=== PATIENT | male | born 2000 | race Caucasian/White ===

== ENCOUNTER 2022-10-06 06:31 | Inpatient (IN) | payer MEDICAID, OTHER ==
[~2022-10-06] VITALS: Ht 182.9 cm; Wt 102.0 kg
--- NOTE | 2022-10-06 06:42 | ED Dyspnea ---
General Stated Complaint: SOB History of Present Illness Date Seen by Provider: Oct 06, 2022 Time Seen by Provider: 06:42 Initial Comments 22-year-old male brought in by EMS. EMS got called out for shortness of breath. When he arrived, patient was in what appears to be SVT he was given 6 and 12 adenosine with no significant change. He did go from approximately 170s to the 150s. Patient is type I diabetic and reports his blood sugars been running a little high. Patient reports that he has been having some vomiting. Patient reports that whenever he drinks water anything he just vomits it back up. No reports of fevers, chills or any other systemic complaints (DALILA TRIPLETT DO) Allergies and Home Medications Allergies Coded Allergies: No Known Drug Allergies (Unverified , 10/06/22) Patient Home Medication List Home Medication List Reviewed: Yes (DALILA TRIPLETT DO) Review of Systems Review of Systems Constitutional: No chills, No fever; malaise, weakness Respiratory: No cough; short of breath Cardiovascular: chest pain (Pressure) Gastrointestinal: No diarrhea; nausea, vomiting Musculoskeletal: no symptoms reported Skin: no symptoms reported Psychiatric/Neurological: No Symptoms Reported Endocrine: No Symptoms Reported (DALIAL TRIPLETT DO) Physical Exam Vital Signs Vital Signs - First Documented 10/06/22 06:31 Temp 36.6 Pulse 151 Resp 40 B/P (MAP) 180/112 (134) Pulse Ox 100 O2 Delivery Room Air (JANINE PHILLIPS MD) Vital Signs Capillary Refill : (DALILA TRIPLETT DO) Height, Weight, BMI Height: '" Weight: lbs. oz. kg; BMI Method: General Appearance: Mild Distress, Other (Obviously ill, [place] breathing) Respiratory: Lungs Clear; No Respiratory Distress; Other (Tachypneic) Cardiovascular: No Edema, Tachycardia Gastrointestinal: Non Tender, Soft Neurologic/Psychiatric: Alert, Oriented x3 Skin: Rash (Mild erythema diffuse chest) (DALILA TRIPLETT DO) Focused Exam Lactate Level 10/06/22 06:35: Lactic Acid Level 3.06*H (JANINE PHILLIPS MD) Lactic Acid Level Laboratory Tests Test 10/06/22 06:35 Lactic Acid Level 3.06 MMOL/L (0.50-2.00) *H (JANINE PHILLIPS MD) Progress/Results/Core Measures Results/Orders Lab Results Laboratory Tests Test 10/06/22 06:35 10/06/22 07:07 10/06/22 07:09 10/06/22 07:20 Range/Units White Blood Count 25.0 H 4.3-11.0 10^3/uL Red Blood Count 5.89 H 4.30-5.52 10^6/uL Hemoglobin 18.3 H 13.3-17.7 g/dL Hematocrit 51 40-54 % Mean Corpuscular Volume 87 80-99 fL Mean Corpuscular Hemoglobin 31 25-34 pg Mean Corpuscular Hemoglobin Concent 36 32-36 g/dL Red Cell Distribution Width 13.2 10.0-14.5 % Platelet Count 476 H 130-400 10^3/uL Mean Platelet Volume 9.2 9.0-12.2 fL Immature Granulocyte % (Auto) 3 % Neutrophils (%) (Auto) 82 H 42-75 % Lymphocytes (%) (Auto) 10 L 12-44 % Monocytes (%) (Auto) 5 0-12 % Eosinophils (%) (Auto) 0 0-10 % Basophils (%) (Auto) 1 0-10 % Neutrophils # (Auto) 20.5 H 1.8-7.8 10^3/uL Lymphocytes # (Auto) 2.4 1.0-4.0 10^3/uL Monocytes # (Auto) 1.2 H 0.0-1.0 10^3/uL Eosinophils # (Auto) 0.0 0.0-0.3 10^3/uL Basophils # (Auto) 0.2 H 0.0-0.1 10^3/uL Immature Granulocyte # (Auto) 0.7 H 0.0-0.1 10^3/uL Neutrophils % (Manual) 68 % Lymphocytes % (Manual) 11 % Monocytes % (Manual) 3 % Metamyelocytes % 2 % Myelocytes % 1 % Band Neutrophils 13 % Reactive Lymphocytes 2 % Toxic Granulation 3+ Platelet Estimate INCREASED Blood Morphology Comment NORMAL D-Dimer 0.57 H 0.00-0.49 UG/ML Sodium Level 134 L 135-145 MMOL/L Potassium Level 4.8 3.6-5.0 MMOL/L Chloride Level 98 98-107 MMOL/L Carbon Dioxide Level 5 *L 21-32 MMOL/L Anion Gap 31 H 5-14 MMOL/L Blood Urea Nitrogen 11 7-18 MG/DL Creatinine 0.90 0.60-1.30 MG/DL Estimat Glomerular Filtration Rate 125 BUN/Creatinine Ratio 12 Glucose Level 396 H 70-105 MG/DL Lactic Acid Level 3.06 *H 0.50-2.00 MMOL/L Calcium Level 9.1 8.5-10.1 MG/DL Corrected Calcium 8.5-10.1 MG/DL Magnesium Level 1.9 1.6-2.4 MG/DL Total Bilirubin 0.2 0.1-1.0 MG/DL Aspartate Amino Transf (AST/SGOT) 7 5-34 U/L Alanine Aminotransferase (ALT/SGPT) 11 0-55 U/L Alkaline Phosphatase 122 40-136 U/L Troponin I < 0.30 <0.30 NG/ML C-Reactive Protein 0.48 <0.50 MG/DL Total Protein 8.5 H 6.4-8.2 GM/DL Albumin 5.1 H 3.2-4.5 GM/DL Glucometer 318 H 70-110 MG/DL Venous Blood pH < 7.00 L 7.31-7.41 Venous Blood Partial Pressure CO2 27 L 40-52 MMHG Venous Blood HCO3 0 L 22-28 MMOL/L Influenza Type A (RT-PCR) Not Detected Not Detecte Influenza Type B (RT-PCR) Not Detected Not Detecte SARS-CoV-2 RNA (RT-PCR) Not Detected Not Detecte Test 10/06/22 07:30 10/06/22 08:21 Range/Units Urine Color YELLOW Urine Clarity CLEAR Urine pH 5.5 5-9 Urine Specific [place] >=1.030 1.016-1.022 Urine Protein 1+ H NEGATIVE Urine Glucose (UA) 2+ H NEGATIVE Urine Ketones 3+ H NEGATIVE Urine Nitrite NEGATIVE NEGATIVE Urine Bilirubin NEGATIVE NEGATIVE Urine Urobilinogen 0.2 < = 1.0 MG/DL Urine Leukocyte Esterase NEGATIVE NEGATIVE Urine RBC (Auto) TRACE-I H NEGATIVE Urine RBC NONE /HPF Urine WBC NONE /HPF Urine Squamous Epithelial Cells NONE /HPF Urine Crystals NONE /LPF Urine Bacteria NEGATIVE /HPF Urine Casts PRESENT /LPF Urine Granular Casts RARE /LPF Urine Mucus NEGATIVE /LPF Urine Culture Indicated NO Glucometer 370 H 70-110 MG/DL (JANINE PHILLIPS MD) My Orders Orders - JANINE PHILLIPS MD Arterial Blood Gas (10/06/22 07:02) Fibrin Degradation Products (10/06/22 07:02) Influenza A And B By Pcr (10/06/22 07:02) Covid 19 Inhouse Test (10/06/22 07:02) Lactated Ringers (Lr 1000 Ml Iv Solution (10/06/22 07:10) Insulin (Regular) Human (Novolin R (Per (10/06/22 07:45) Ct Angio Chest W (10/06/22 07:49) Iohexol Injection (Omnipaque 350 Mg/Ml 1 (10/06/22 08:00) Received Contrast (Hold Metformin- Contr (10/06/22 08:00) Ns (Ivpb) (Sodium Chloride 0.9% Ivpb Bag (10/06/22 08:00) Venous Blood Gas (10/06/22 08:06) Insulin Regular Drip (Myxredlin 100 Unit (10/06/22 08:30) Lactated Ringers (Lr 1000 Ml Iv Solution (10/06/22 08:25) Accucheck Q1hr Q1HR (10/06/22 08:29) Potassium Cl 10meq/50ml Ivpb (Kcl 10 Meq (10/06/22 08:33) Sodium Bicarbonate 8.4% Syr (Sodium Bica (10/06/22 08:45) Ed Admission (Communication) (10/06/22 08:44) (JANINE PHILLIPS MD) Medications Given in ED Current Medications Medications Dose Ordered Sig/Sunita Route Start Time Stop Time Status Last Admin Dose Admin Calcium Gluconate/ Sodium Chloride 100 ml @ 120 mls/hr ONCE ONCE IV 10/06/22 06:45 10/06/22 07:34 DC 10/06/22 06:52 120 MLS/HR Insulin Human Regular 10 unit ONCE ONCE IV 10/06/22 07:45 10/06/22 07:46 DC 10/06/22 07:42 10 UNIT Sodium Bicarbonate 100 meq ONCE ONCE IV 10/06/22 08:45 10/06/22 08:46 DC 10/06/22 08:55 100 MEQ Sodium Chloride 1,000 ml @ 999 mls/hr ONCE ONCE IV 10/06/22 07:15 10/06/22 08:15 DC 10/06/22 06:47 999 MLS/HR (JANINE PHILLIPS MD) Vital Signs/I&O 10/06/22 06:31 Temp 36.6 Pulse 151 Resp 40 B/P (MAP) 180/112 (134) Pulse Ox 100 O2 Delivery Room Air (JANINE PHILLIPS MD) Progress Progress Note : Progress Note Patient turned over to oncoming physician. Patient appears to be in DKA and DKA resuscitation started with fluids. He did have some peaked T appearing waves on EKG so he was provided with some calcium gluconate. At this time patient's heart rate is starting to slowly improve with fluid resuscitation. (DALILA TRIPLETT DO) Progress Note : Progress Note Received the patient in signout pending lab work. Glucose in the 300s, anion gap 31, bicarb 5, pH less than 7, 3+ ketones in the urine, CBC appears hemoconcentrated with a leukocytosis as well, flu and COVID test negative. All consistent with DKA. I believe the patient is in DKA because he turned his insulin drip off last night. He states he turned it off because he was worried about some low blood sugars that he was having. Patient received 4 L of IV fluids in total after frequent reassessment. 10 units of insulin were given after his potassium came back at 4.8. We will start an insulin drip as well as some potassium with that in the ER. I contacted Dr. Finch who will admit the patient to the intensive care unit under inpatient status. I then contacted the eICU physician and discussed the patient's case. He recommended giving 100 mill equivalents of sodium bicarb via IV as a push dose. The patient will go via EMS transport. Of note, the patient requested I contact his mother, Micaela, and give her an update. Called her at 08:00 at [phone] to give an update. [place] (JANINE PHILLISP MD) Initial ECG Impression Date: Oct 06, 2022 Initial ECG Impression Time: 06:34 Initial ECG Rate: 165 Initial ECG Rhythm: SVT Comment Narrow QRS, normal axis, no significant ST changes or T wave abnormalities other than some slight peaking of T waves (JANINE PHILLIPS MD) Diagnostic Imaging Diagonstic Imaging: Xray (chest), CT (chest) [facility] [place] [place] NAME: [facility] REC#: [id number] PT STATUS: REG ER : 2000 PHYSICIAN: DALILA TRIPLETT DO ADMIT DATE: 10/06/22/ER FS Draft Date of Exam:10/06/22 CHEST 1 VIEW AP/PA ONLY Clinical Indication: Patient brought in by EMS for shortness of air. EXAM: Portable chest x-ray upright view. COMPARISON: None. FINDINGS: Of note, part of the left costophrenic angle region is not completely imaged on this exam. Lungs/pleura: Lungs are clear. There is no pneumothorax. There is no pleural effusion. Mediastinum: Unremarkable. Pulmonary vasculature: Unremarkable. Heart: Unremarkable. Bones/extrathoracic soft tissue: Unremarkable. IMPRESSION: There is no radiographic evidence of acute cardiopulmonary process, as visualized. Dictated on workstation # [id number] Dict: 10/06/22 0700 Trans: 10/06/22 0707 [facility] [id number] Interpreted by: CARLINE FERREIRA MD Electronically signed by: [facility] [place] [place] NAME: DAVID GARCIA [facility] REC#: [id number] PT STATUS: REG ER : 2000 PHYSICIAN: JANINE PHILLIPS MD ADMIT DATE: 10/06/22/ER FS Draft Date of Exam:10/06/22 CT ANGIO CHEST W PROCEDURE: CT angiography of the chest with contrast. TECHNIQUE: Multiple contiguous axial images were obtained through the chest after uneventful bolus administration of intravenous contrast. 3D reconstructed CTA MIP acquisitions were also performed. Auto Exposure Controls were utilized during the CT exam to meet ALARA standards for radiation dose reduction. INDICATION: Chest pain. Shortness of breath. Positive D-dimer. COMPARISON: Chest radiograph 10/06/2022. FINDINGS: Examination is markedly limited by both contrast timing and respiratory motion. Although a saddle embolus is not present, filling defect in the main pulmonary arteries or more distally cannot be entirely excluded. Normal heart size. No pericardial effusion. No mediastinal, hilar or axillary lymphadenopathy. Lungs are clear. No pleural effusion or pneumothorax. No acute osseous findings. Visualized upper abdominal contents are unremarkable. IMPRESSION: 1. Limited exam due to contrast timing and respiratory motion. No saddle embolus is present. However, a filling defect in the main pulmonary arteries or more distally cannot be excluded by this exam. If this remains of clinical concern, the exam can be repeated if the patient has normal renal function. 2. No acute CT findings in the chest. Dictated on workstation # [id number] Dict: 10/06/2225 Trans: 10/06/22 0841 [id number] Interpreted by: MAYA BAGLEY MD Electronically signed by: (JANINE PHILLIPS MD) Critical Care Note Critical Care Start Time: 07:00 Stop Time: 09:05 Total Time (minutes) 93 Progress The patient was extremely tachycardic and Kussma[place] breathing. He has significant metabolic derangements including a pH less than 7. He is at significant risk for cardiovascular collapse. I frequently was in the room reassessing the patient, reviewing his labs, changing medications, contacting other physicians for report, and giving updates to family. (JANINE PHILLIPS MD) Departure Impression Primary Impression: DKA (diabetic ketoacidosis) Qualified Codes: E10.10 - Type 1 diabetes mellitus with ketoacidosis without coma Disposition: 30 STILL A PATIENT Condition: Critical Admissions Decision to Admit Reason: Admit from ER (General) Decision to Admit/Date: Oct 06, 2022 Time/Decision to Admit Time: 08:30 (JANINE PHILLIPS MD) Transfer Method of Transfer: EMS (JANINE PHILLIPS MD) DALILA TRIPLETT DO Oct 06, 2022 06:42 JANINE PHILLIPS MD Oct 06, 2022 07:33
[2022-10-06] MEDS ORDERED: CALC GLUC 1 GM/100 ML IVPB 100 ML IV ONE (06:45)
[2022-10-06 06:57] LABS: BASOPHILS # (AUTO) 0.2 10^3/uL (0.0-0.1); BASOPHILS % (AUTO) 1 % (0-10); EOSINOPHILS % (AUTO) 0 % (0-10); HEMATOCRIT 51 % (40-54); HEMOGLOBIN 18.3 g/dL (13.3-17.7); LYMPHOCYTES # (AUTO) 2.4 10^3/uL (1.0-4.0); LYMPHOCYTES % (AUTO) 10 % (12-44); MEAN CORPUSCULAR HEMOGLOBIN 31 pg (25-34); MEAN CORPUSCULAR HGB CONC 36 g/dL (32-36); MEAN CORPUSCULAR VOLUME 87 fL (80-99); MEAN PLATELET VOLUME 9.2 fL (9.0-12.2); MONOCYTES # (AUTO) 1.2 10^3/uL (0.0-1.0); MONOCYTES % (AUTO) 5 % (0-12); NEUTROPHILS # (AUTO) 20.5 10^3/uL (1.8-7.8); NEUTROPHILS % (AUTO) 82 % (42-75); PLATELET COUNT 476 10^3/uL (130-400)
--- NOTE | 2022-10-06 07:08 | Diagnostic Imaging Report ---
Clinical Indication: Patient brought in by EMS for shortness of air. EXAM: Portable chest x-ray upright view. COMPARISON: None. FINDINGS: Of note, part of the left costophrenic angle region is not completely imaged on this exam. Lungs/pleura: Lungs are clear. There is no pneumothorax. There is no pleural effusion. Mediastinum: Unremarkable. Pulmonary vasculature: Unremarkable. Heart: Unremarkable. Bones/extrathoracic soft tissue: Unremarkable. IMPRESSION: There is no radiographic evidence of acute cardiopulmonary process, as visualized. Dictated by: Dictated on workstation # [id number]
[2022-10-06] MEDS ORDERED: LACTATED RINGERS 1,000 ML IV STA ×2 (07:10→08:25)
[2022-10-06] MEDS ORDERED: NS IV 1000 ML 1,000 ML IV ONE (07:15)
[2022-10-06 07:18] LABS: BAND NEUTROPHILS 13 %; LYMPHOCYTES % (MANUAL) 11 %; METAMYELOCYTES % 2 %; MONOCYTES % (MANUAL) 3 %; MYELOCYTES % 1 %; NEUTROPHILS % (MANUAL) 68 %; PLATELET ESTIMATE INCREASED; RBC MORPH NORMAL; REACTIVE LYMPHOCYTES 2 %; TOXIC GRANULATION/VACUOLAZATIO 3+
[2022-10-06 07:28] LABS: CHLORIDE 98 MMOL/L (98-107); POTASSIUM 4.8 MMOL/L (3.6-5.0); SODIUM 134 MMOL/L (135-145)
[2022-10-06 07:30] LABS: ALANINE AMINOTRANSFERASE 11 U/L (0-55); ALKALINE PHOSPHATASE 122 U/L (40-136); BILIRUBIN,TOTAL 0.2 MG/DL (0.1-1.0); BUN/CREATININE RATIO 12; CALCIUM 9.1 MG/DL (8.5-10.1); CARBON DIOXIDE 5 MMOL/L (21-32); GFR ESTIMATED 125; GLUCOSE 396 MG/DL (70-105); MAGNESIUM 1.9 MG/DL (1.6-2.4)
[2022-10-06 07:31] LABS: ALBUMIN 5.1 GM/DL (3.2-4.5); TOTAL PROTEIN 8.5 GM/DL (6.4-8.2)
[2022-10-06 07:44] LABS: BILIRUBIN,URINE NEGATIVE (NEGATIVE); CLARITY,URINE CLEAR; COLOR,URINE YELLOW; GLUCOSE, URINE (UA) 2+ (NEGATIVE); KETONES,URINE 3+ (NEGATIVE); LEUKOCYTE ESTERASE ,URINE NEGATIVE (NEGATIVE); NITRITE,URINE NEGATIVE (NEGATIVE); PH,URINE 5.5 (5-9); PROTEIN,URINE 1+ (NEGATIVE)
[2022-10-06] MEDS ORDERED: inSUlin (REGULAR) HUMAN 1 UNIT/0.01 ML (CHARGE PER UNIT) IV ONE (07:45)
[2022-10-06 07:50] LABS: BACTERIA,URINE NEGATIVE /HPF
[2022-10-06 07:51] LABS: GRANULAR CASTS,URINE RARE /LPF
[2022-10-06] MEDS ORDERED: NS 100 ML (IVPB) BAG IV ONE (08:00)
[2022-10-06] MEDS ORDERED: IOHEXOL 350 MG/ML 100 ML (OMNIPAQUE 350) VIAL IV ONE (08:00)
[2022-10-06] MEDS ORDERED: HOLD METFORMIN - RECEIVED CONTRAST 20 ML VIAL IV SCH (08:00)
[2022-10-06] MEDS ORDERED: POTASSIUM CL 10MEQ/50ML IVPB 50 ML IV STA (08:33)
--- NOTE | 2022-10-06 08:42 | Diagnostic Imaging Report ---
PROCEDURE: CT angiography of the chest with contrast. TECHNIQUE: Multiple contiguous axial images were obtained through the chest after uneventful bolus administration of intravenous contrast. 3D reconstructed CTA MIP acquisitions were also performed. Auto Exposure Controls were utilized during the CT exam to meet ALARA standards for radiation dose reduction. INDICATION: Chest pain. Shortness of breath. Positive D-dimer. COMPARISON: Chest radiograph 10/06/2022. FINDINGS: Examination is markedly limited by both contrast timing and respiratory motion. Although a saddle embolus is not present, filling defect in the main pulmonary arteries or more distally cannot be entirely excluded. Normal heart size. No pericardial effusion. No mediastinal, hilar or axillary lymphadenopathy. Lungs are clear. No pleural effusion or pneumothorax. No acute osseous findings. Visualized upper abdominal contents are unremarkable. IMPRESSION: 1. Limited exam due to contrast timing and respiratory motion. No saddle embolus is present. However, a filling defect in the main pulmonary arteries or more distally cannot be excluded by this exam. If this remains of clinical concern, the exam can be repeated if the patient has normal renal function. 2. No acute CT findings in the chest. Dictated by: Dictated on workstation # [id number]
[2022-10-06] MEDS ORDERED: SODIUM BICARB 8.4% 50 MEQ/50 ML (ABBOTT) SYR IV ONE (08:45)
[2022-10-06 09:42] VITALS: BP 150/92
[2022-10-06] MEDS ORDERED: POTASSIUM CL 10MEQ/50ML IVPB 50 ML IV ONE (10:39)
[2022-10-06] MEDS ORDERED: D5 1/2 NS 1000 ML IV SOLUTION 1,000 ML IV ONE (10:39)
[2022-10-06] MEDS ORDERED: 1/2 NS IV SOLUTION 1,000 ML IV ONE (10:42)
--- NOTE | 2022-10-06 11:24 | Tele-ICU Progress Note ---
Subjective Date Seen by a Provider: Oct 06, 2022 Time Seen by a Provider: 11:24 Subjective/Events-last exam (Tele-ICU Physician , consultation) Available chart/ vitals / labs / Images reviewed H&P is from ER notes Patient's information available about PMH, allergy reviewed in EMR. ROS as per chart and RN report Video assessment done using teleICU camera, rest of exam as per RN Discussed with RN. He is a 22-year-old male with past medical history of for type 1 diabetes mellitus on insulin presented to the [facility] emergency room with a complaint of shortness of breath and chest pain. He came via ambulance and EMS found him to have a SVT in the range of 430-170/min they have given adenosine 6 mg followed by 12 mg without improvement. He is also having vomiting said he could not keep anything down a day prior to the admission. He denies any hemoptysis hematemesis. No abdominal pain. No urinary symptoms present. In the emergency room he is found to have a markedly elevated blood sugars with diabetic ketoacidosis. Metabolic acidosis. He is given a Zofran and IV fluids along with insulin drip and transferred to. [facility] in [place]. He is admitted to ICU for further evaluation and management. I have evaluated him via video visit in the intensive care unit at that time he is feeling somewhat better he is tachypneic. He was markedly tachypneic and having Kussmaul breathing at [facility] for ER physician hence I advised that he him to give 100 mEq of sodium bicarbonate. He has a leukocytosis but there is no source of infection present. In view of the chest pain for which she was evaluated with CT angiogram of the chest which is within normal limits. No pulmonary emboli found. Impression 1. Diabetic ketoacidosis. 2. Severe dehydration 3. Severe tachycardia probably due to dehydration and acidosis Recommendations 1. Will hydrate patient with D5 half-normal saline per protocol 2. IV insulin drip per protocol 3. We will continue to monitor his electrolytes, magnesium and phosphorus every 4 hours for the next 1 day 4. IV Zofran for nausea and IV Protonix for any gastritis. 5. Further management for primary care physician. CC time 25 minutes Sepsis Event Evaluation Height, Weight, BMI Height: '" Weight: lbs. oz. kg; 29.59 BMI Method: Focused Exam Lactate Level 10/06/22 06:35: Lactic Acid Level 3.06*H 10/06/22 09:33: Lactic Acid Level 2.61*H Lactic Acid Level Laboratory Tests Test 10/06/22 09:33 Lactic Acid Level 2.61 MMOL/L (0.50-2.00) *H Exam Exam Patient acknowledged, consented, and participated in this virtual visit which was conducted using real time audio/video Vital Signs Date Time Temp Pulse Resp B/P (MAP) Pulse Ox O2 Delivery O2 Flow Rate FiO2 10/06/22 11:00 141 33 137/93 (108) 100 Room Air 10/06/22 10:45 152 33 149/93 (111) 97 Room Air 10/06/22 10:44 156 10/06/22 10:40 37.6 151 39 152/100 (117) 100 Room Air 10/06/22 10:30 156 33 152/100 (117) 100 Room Air 10/06/22 06:31 36.6 151 40 180/112 (134) 100 Room Air I & O 10/06/22 07:00 Intake Total 200 ml Balance 200 ml Height & Weight Height: '" Weight: lbs. oz. kg; 29.59 BMI Method: General Appearance: Mild Distress, Other (Obviously ill, [place] breathing) Respiratory: Lungs Clear; No Respiratory Distress; Other (Tachypneic) Cardiovascular: No Edema, Tachycardia Capillary Refill: Less Than 3 Seconds Neurologic/Psychiatric: Alert, Oriented x3 Skin: Rash (Mild erythema diffuse chest) Results Lab Laboratory Tests 10/06/22 06:35 Assessment/Plan Assessment/Plan as above Critical Care: Critically Ill Patient Time spent with patient (mins): 25 JOSH MUÑOZ MD Oct 06, 2022 11:24
[2022-10-06] MEDS ORDERED: ONDANSETRON 4 MG/2 ML (SDV) Z0FRAN IVP PRN (11:30)
[2022-10-06] MEDS ORDERED: INSU100I42 (11:49)
[2022-10-06] MEDS ORDERED: NS IV 1000 ML 1,000 ML IV SCH (12:00)
[2022-10-06 12:17] LABS: HEMATOCRIT 52 % (40-54); HEMOGLOBIN 18.1 g/dL (13.3-17.7); MEAN CORPUSCULAR HEMOGLOBIN 31 pg (25-34); MEAN CORPUSCULAR HGB CONC 35 g/dL (32-36); MEAN CORPUSCULAR VOLUME 89 fL (80-99); MEAN PLATELET VOLUME 8.9 fL (9.0-12.2); PLATELET COUNT 368 10^3/uL (130-400); WHITE BLOOD COUNT 26.5 10^3/uL (4.3-11.0)
[2022-10-06] MEDS: POTASSIUM CL 10MEQ/50ML IVPB 50 ML IV SCH ×7 (12:34→21:57)
[2022-10-06] MEDS: 1/2 NS IV SOLUTION 1,000 ML IV SCH ×2 (12:34→16:24)
[2022-10-06 12:44] LABS: CALCIUM 9.3 MG/DL (8.5-10.1); CREATININE SERUM 1.23 MG/DL (0.60-1.30); PHOSPHORUS 2.6 MG/DL (2.3-4.7); POTASSIUM 4.1 MMOL/L (3.6-5.0)
[2022-10-06 14:27] LABS: CALCIUM 9.3 MG/DL (8.5-10.1); CREATININE SERUM 1.25 MG/DL (0.60-1.30); POTASSIUM 4.2 MMOL/L (3.6-5.0)
[2022-10-06] MEDS: D5 1/2 NS 1000 ML IV SOLUTION 1,000 ML IV SCH ×3 (15:17→23:38)
[2022-10-06 16:24] LABS: CALCIUM 9.1 MG/DL (8.5-10.1); CREATININE SERUM 1.14 MG/DL (0.60-1.30); MAGNESIUM 1.8 MG/DL (1.6-2.4); PHOSPHORUS 1.2 MG/DL (2.3-4.7); POTASSIUM 3.8 MMOL/L (3.6-5.0)
[2022-10-06] MEDS ORDERED: POTASSIUM PHOSPHATE INJ 30 MM in NS (IVPB) 250 ML IV ONE (17:00)
[2022-10-06 20:34] LABS: POTASSIUM 3.7 MMOL/L (3.6-5.0)
[2022-10-06 20:36] LABS: CALCIUM 8.8 MG/DL (8.5-10.1)
[2022-10-06 20:40] LABS: CREATININE SERUM 1.02 MG/DL (0.60-1.30); PHOSPHORUS 1.9 MG/DL (2.3-4.7)
[2022-10-06 20:42] LABS: MAGNESIUM 1.6 MG/DL (1.6-2.4)
--- NOTE | 2022-10-06 22:26 | History & Physical-Hospitalist ---
History of Present Illness HPI/Chief Complaint Handy Crouch is a 22 year old male with T1DM who presented with shortness of breath. He has also had nausea and vomiting. He has been unable to hold anything down. He says he had issues with his blood sugars going low and turned off his insulin pump. He says he forgot to turn it back on. He has a continuous glucose monitor but says he hasn't been wearing it. He has been doing fingersticks. He says he was in his normal state of health prior to turning off his insulin pump. He denies fevers and chills. He denies shortness of breath and cough. He denies chest pain. Source: patient Exam Limitations: clinical condition Date Seen 10/06/22 Time Seen by a Provider: 11:50 Attending Physician Nyla,Local Physician PCP Admitting Physician: Juhi Schafer MD Attending Physician: Juhi Schafer MD Referring Physician Date of Admission Oct 06, 2022 at 10:30 Home Medications & Allergies Home Medications Reviewed patient Home Medication Reconciliation performed by pharmacy medication reconciliations urgent care technician and/or nursing. Patients Allergies have been reviewed. Allergies Allergies Coded Allergies No Known Drug Allergies (Xcysdgrdrl12/19/22) Past Rwzxkmq-Tvjcoz-Xqmbrf Hx Patient Social History Tobacco Use?: No Substance use?: No Alcohol Use?: No Pt feels they are or have been: No Current Status Advance Directives: No Communicates: Verbally Primary Language: Korean Preferred Spoken Language: Korean Is interpretation needed?: No Implanted or Applied Medical D: None Past Medical History Diabetes, Insulin dep Family Medical History No Pertinent Family Hx Review of Systems Constitutional: malaise, weakness Respiratory: short of breath Cardiovascular: no symptoms reported Gastrointestinal: nausea, vomiting Physical Exam Physical Exam Vital Signs Vital Signs - First Documented 10/06/22 06:31 Temp 36.6 Pulse 151 Resp 40 B/P (MAP) 180/112 (134) Pulse Ox 100 O2 Delivery Room Air Capillary Refill : Less Than 3 Seconds Height, Weight, BMI Height: '" Weight: lbs. oz. kg; 29.59 BMI Method: General Appearance: Anxious, Severe Distress (tachypnea) HEENT: PERRL/EOMI, Pharynx Normal Neck: Normal Inspection, Supple Respiratory: Lungs Clear, Respiratory Distress (tachypnea, Kussmaul breathing) Cardiovascular: No Edema, No Murmur, Tachycardia Gastrointestinal: Normal Bowel Sounds, Non Tender, Soft Extremity: Normal Inspection, Non Tender, No Pedal Edema Neurologic/Psychiatric: Alert, No Motor/Sensory Deficits Skin: Normal Color, Warm/Dry Results Results/Procedures Labs Laboratory Tests 10/06/22 06:35 10/06/22 12:05 10/06/22 13:50 10/06/22 15:50 10/06/22 20:10 Patient resulted labs reviewed. Imaging: Reviewed Imaging Report Assessment/Plan Admission Diagnosis T1DM with DKA Admission Status: Inpatient Order (span 2 midnights) Reason for Inpatient Admission: DKA Assessment and Plan T1DM with DKA Blood sugar 396 Betahydroxybutyrate ~10 Bicarb 5 DKA protocol ordered Insulin gtt IV fluids IV Bicarb TeleICU consulted Diabetes education Critical Care Critically Ill Patient Diagnosis/Problems Diagnosis/Problems (1) T1DM (type 1 diabetes mellitus) Status: Acute Qualifiers: Diabetes mellitus complication status: with ketoacidosis Diabetes mellitus complication detail: without coma Qualified Codes: E10.10 - Type 1 diabetes mellitus with ketoacidosis without coma (2) Lactic acidosis Status: Acute (3) SALVADOR (acute kidney injury) Status: Acute (4) High anion gap metabolic acidosis Status: Acute JUHI SCHAFER MD Oct 06, 2022 22:26
[2022-10-06 23:36] LABS: POTASSIUM 3.3 MMOL/L (3.6-5.0)
[2022-10-06 23:37] LABS: CALCIUM 8.9 MG/DL (8.5-10.1)
[2022-10-06 23:41] LABS: CREATININE SERUM 0.9 MG/DL (0.60-1.30); PHOSPHORUS 2.3 MG/DL (2.3-4.7)
[2022-10-06 23:43] LABS: MAGNESIUM 1.6 MG/DL (1.6-2.4)
[2022-10-07] MEDS: POTASSIUM CL 10MEQ/50ML IVPB 50 ML IV SCH ×15 (01:54→23:13)
[2022-10-07 03:25] LABS: BASOPHILS % (AUTO) 0 % (0-10); EOSINOPHILS % (AUTO) 0 % (0-10); HEMATOCRIT 41 % (40-54); HEMOGLOBIN 15.1 g/dL (13.3-17.7); LYMPHOCYTES # (AUTO) 1.7 10^3/uL (1.0-4.0); LYMPHOCYTES % (AUTO) 15 % (12-44); MEAN CORPUSCULAR HEMOGLOBIN 31 pg (25-34); MEAN CORPUSCULAR HGB CONC 37 g/dL (32-36); MEAN CORPUSCULAR VOLUME 85 fL (80-99); MEAN PLATELET VOLUME 8.6 fL (9.0-12.2); MONOCYTES # (AUTO) 1.5 10^3/uL (0.0-1.0); MONOCYTES % (AUTO) 12 % (0-12); NEUTROPHILS # (AUTO) 8.4 10^3/uL (1.8-7.8); NEUTROPHILS % (AUTO) 72 % (42-75); PLATELET COUNT 264 10^3/uL (130-400); WHITE BLOOD COUNT 11.8 10^3/uL (4.3-11.0)
[2022-10-07 03:44] LABS: POTASSIUM 3.3 MMOL/L (3.6-5.0)
[2022-10-07] MEDS: D5 1/2 NS 1000 ML IV SOLUTION 1,000 ML IV SCH ×5 (03:44→19:53)
[2022-10-07 03:45] LABS: CALCIUM 8.9 MG/DL (8.5-10.1)
[2022-10-07 03:49] LABS: CREATININE SERUM 0.83 MG/DL (0.60-1.30); PHOSPHORUS 2.4 MG/DL (2.3-4.7)
[2022-10-07 03:52] LABS: MAGNESIUM 1.6 MG/DL (1.6-2.4)
[2022-10-07 07:56] LABS: BAND NEUTROPHILS 5 %; BASOPHILS % (MANUAL) 0 %; EOSINOPHILS % (MANUAL) 0 %; LYMPHOCYTES % (MANUAL) 20 %; MONOCYTES % (MANUAL) 8 %; NEUTROPHILS % (MANUAL) 67 %; RBC MORPH NORMAL
[2022-10-07] MEDS: 1/2 NS IV SOLUTION 1,000 ML IV SCH ×5 (07:56→23:12)
[2022-10-07 08:48] LABS: POTASSIUM 3.2 MMOL/L (3.6-5.0)
[2022-10-07 08:53] LABS: PHOSPHORUS 1.9 MG/DL (2.3-4.7)
[2022-10-07 08:54] LABS: CREATININE SERUM 0.78 MG/DL (0.60-1.30)
[2022-10-07 08:56] LABS: MAGNESIUM 1.6 MG/DL (1.6-2.4)
--- NOTE | 2022-10-07 10:11 | Tele-ICU Progress Note ---
Subjective Date Seen by a Provider: Oct 07, 2022 Time Seen by a Provider: 10:11 Subjective/Events-last exam (Tele-ICU Physician , Progress Note ) Service provided via interactive audio and video telecommunications E-CARE system to a patient admitted to ICU bed in [facility]. Available chart/ vitals / labs / Images reviewed Video assessment done using teleICU camera, rest of exam as per RN Discussed with RN Events overnight : Afebrile hemodynamically stable Respiratory - I/O = Drips: Pressors- no Consultants: Hospital course: Patient is seen today due to persistent and new A/P DKA -precipitated by pump malfunction ? -No suspicious for new infection, UA and CTA reviewed *Insulin drip, continue to monitor for resolution of acidosis, AG and electrolytes. Continue hydration. SALVADOR- mild - dehydration, hypotension - cont IVF - follow closely Severe tachycardia probably due to dehydration and acidosis - CTA done , no large PE Lines : , (Central Line Necessity Reviewed) Lorenzana: OG: Nutrition: Analgesia: Anxiety/ delirium VTE Prophylaxis: david Stress Ulcer Prophylaxis: na Plans in collaboration with bedside consultants and IM MDs. Discussed with RN to reach out if any questions or concerns A total of 20 minutes of critical care time was devoted to this patient today, required to treat and/or prevent further deterioration of critical care condi tion ( as above ) . I am remotely monitoring this patient from another state. I am unable to do the bedside exam, and history/physical and pertinent information is taken from other notes in the computer and bedside staff. + Sepsis Event Evaluation Height, Weight, BMI Height: '" Weight: lbs. oz. kg; 29.59 BMI Method: Focused Exam Lactate Level 10/06/22 12:05: Lactic Acid Level 2.97*H 10/06/22 13:50: Lactic Acid Level 2.21*H 10/06/22 15:50: Lactic Acid Level 1.10 Exam Exam Patient acknowledged, consented, and participated in this virtual visit which was conducted using real time audio/video Vital Signs Date Time Temp Pulse Resp B/P (MAP) Pulse Ox O2 Delivery O2 Flow Rate FiO2 10/07/22 08:00 106 18 134/111 (119) 100 Room Air 10/07/22 07:41 36.9 10/07/22 07:13 90 10/07/22 07:00 93 21 141/93 (109) 98 Room Air 10/07/22 06:00 98 16 128/82 (97) 100 Room Air 10/07/22 05:00 98 18 127/87 (100) 100 Room Air 10/07/22 04:00 100 Room Air 10/07/22 04:00 98 20 122/78 (93) 98 Room Air 10/07/22 03:45 37.1 93 18 121/78 (92) 99 Room Air 10/07/22 02:00 105 20 124/74 (91) 97 Room Air 10/07/22 01:00 105 10/07/22 01:00 105 17 120/79 (93) 96 Room Air 10/07/22 00:01 37.1 113 20 123/77 (92) 97 Room Air 10/07/22 00:00 97 Room Air 10/06/22 23:00 107 18 121/77 (92) 97 Room Air 10/06/22 22:00 113 20 118/74 (89) 99 Room Air 10/06/22 21:00 113 19 116/67 (83) 97 Room Air 10/06/22 20:00 112 22 114/62 (79) 97 Room Air 10/06/22 20:00 100 Room Air 10/06/22 20:00 37.5 10/06/22 19:00 111 10/06/22 19:00 111 19 116/73 (87) 98 Room Air 10/06/22 18:00 112 20 112/72 (85) 98 Room Air 10/06/22 17:00 109 21 106/63 (77) 97 Room Air 10/06/22 16:00 37.5 10/06/22 16:00 112 22 112/69 (83) 98 Room Air 10/06/22 16:00 100 Room Air 10/06/22 15:00 111 27 104/61 (75) 99 Room Air 10/06/22 14:00 161 24 141/101 (114) 100 Room Air 10/06/22 13:00 133 24 136/87 (103) 100 Room Air 10/06/22 12:57 131 10/06/22 12:37 100 Room Air 10/06/22 12:00 141 43 132/99 (110) 100 Room Air 10/06/22 12:00 37.9 10/06/22 11:00 141 33 137/93 (108) 100 Room Air 10/06/22 10:45 152 33 149/93 (111) 97 Room Air 10/06/22 10:45 100 Room Air 10/06/22 10:44 156 10/06/22 10:40 37.6 151 39 152/100 (117) 100 Room Air 10/06/22 10:30 156 33 152/100 (117) 100 Room Air I & O 10/07/22 07:00 Intake Total 6960 ml Output Total 3875 ml Balance 3085 ml Height & Weight Height: '" Weight: lbs. oz. kg; 29.59 BMI Method: General Appearance: Anxious, Severe Distress (tachypnea) HEENT: PERRL/EOMI, Pharynx Normal Neck: Normal Inspection, Supple Respiratory: Lungs Clear, Respiratory Distress (tachypnea, Kussmaul breathing) Cardiovascular: No Edema, No Murmur, Tachycardia Capillary Refill: Less Than 3 Seconds Extremity: Normal Inspection, Non Tender, No Pedal Edema Neurologic/Psychiatric: Alert, No Motor/Sensory Deficits Skin: Normal Color, Warm/Dry Results Lab Laboratory Tests 10/06/22 06:35 10/06/22 12:05 10/06/22 13:50 10/06/22 15:50 10/06/22 20:10 10/06/22 23:10 10/07/22 03:17 10/07/22 08:20 Assessment/Plan Assessment/Plan 1 AXEL SWAIN MD Oct 07, 2022 10:11
[2022-10-07] MEDS: ENOXAPARIN 40 MG/0.4 ML (LOVENOX) SYR SC SCH (10:35)
[2022-10-07 14:30] LABS: CALCIUM 8.7 MG/DL (8.5-10.1); CREATININE SERUM 0.76 MG/DL (0.60-1.30); POTASSIUM 2.9 MMOL/L (3.6-5.0)
[2022-10-07] MEDS ORDERED: SODIUM PHOSPHATE INJ 15 MM in D5W 100 ML IVPB 100 ML IV ONE (15:00)
[2022-10-07] MEDS ORDERED: KCL 20 MEQ TAB (K-DUR) PO ONE (15:00)
[2022-10-07] MEDS: MAGNESIUM 1 GM/100 ML IVPB 100 ML IV SCH ×3 (17:02→18:54)
--- NOTE | 2022-10-07 17:53 | Progress Note - Hospitalist ---
Subjective HPI/CC On Admission Date Seen by Provider: Oct 07, 2022 Time Seen by Provider: 08:55 Handy Crouch is a 22 year old male with T1DM who presented with shortness of breath. He has also had nausea and vomiting. He has been unable to hold anything down. He says he had issues with his blood sugars going low and turned off his insulin pump. He says he forgot to turn it back on. He has a continuous glucose monitor but says he hasn't been wearing it. He has been doing fingersticks. He says he was in his normal state of health prior to turning off his insulin pump. He denies fevers and chills. He denies shortness of breath and cough. He denies chest pain. Subjective/Events-last exam He is feeling much better today. He is not short of breath. He denies pain. His fiancee is bringing his insulin pump. Focused Exam Lactate Level 10/06/22 12:05: Lactic Acid Level 2.97*H 10/06/22 13:50: Lactic Acid Level 2.21*H 10/06/22 15:50: Lactic Acid Level 1.10 Objective Exam Vital Signs Vital Signs Date Time Temp Pulse Resp B/P (MAP) Pulse Ox O2 Delivery O2 Flow Rate FiO2 10/07/22 16:00 37.7 10/07/22 16:00 116 25 144/98 (113) 99 Room Air Capillary Refill : Less Than 3 Seconds General Appearance: No Apparent Distress, WD/WN Respiratory: Lungs Clear, No Respiratory Distress Cardiovascular: No Murmur, Tachycardia Gastrointestinal: Normal Bowel Sounds, Soft Extremity: Normal Inspection, No Pedal Edema Neurologic/Psychiatric: Alert, Normal Mood/Affect Skin: Normal Color, Warm/Dry Results/Procedures Lab Laboratory Tests 10/06/22 20:10 10/06/22 23:10 10/07/22 03:17 10/07/22 08:20 10/07/22 14:09 Patient resulted labs reviewed. Imaging: Reviewed Imaging Report Assessment/Plan Assessment and Plan Assess & Plan/Chief Complaint T1DM with DKA Hypokalemia Hypophosphatemia High anion gap metabolic acidosis Lactic acidosis SALVADOR Anion gap closed Remains acidotic with elevated beta hydroxybutyrate Continue Insulin gtt IV fluids TeleICU following Diabetes education Critical Care Critically Ill Patient Diagnosis/Problems Diagnosis/Problems (1) T1DM (type 1 diabetes mellitus) Status: Acute Qualifiers: Diabetes mellitus complication status: with ketoacidosis Diabetes mellitus complication detail: without coma Qualified Codes: E10.10 - Type 1 diabetes mellitus with ketoacidosis without coma (2) Lactic acidosis Status: Resolved Resolution Date/Time: 10/07/22 @ 17:52 (3) SALVADOR (acute kidney injury) Status: Resolved Resolution Date/Time: 10/07/22 @ 17:52 (4) High anion gap metabolic acidosis Status: Resolved Resolution Date/Time: 10/07/22 @ 17:52 (5) Hypophosphatemia Status: Acute (6) Hypokalemia Status: Acute JUHI SCHAFER MD Oct 07, 2022 17:52
[2022-10-07 22:43] LABS: POTASSIUM 3.1 MMOL/L (3.6-5.0)
[2022-10-07 22:44] LABS: CALCIUM 8.5 MG/DL (8.5-10.1)
[2022-10-07 22:48] LABS: CREATININE SERUM 0.69 MG/DL (0.60-1.30)
[2022-10-08] MEDS: POTASSIUM CL 10MEQ/50ML IVPB 50 ML IV SCH ×8 (00:55→09:10)
[2022-10-08] MEDS: 1/2 NS IV SOLUTION 1,000 ML IV SCH ×3 (02:13→10:35)
[2022-10-08] MEDS: D5 1/2 NS 1000 ML IV SOLUTION 1,000 ML IV SCH ×2 (03:54→08:02)
[2022-10-08 04:57] LABS: BASOPHILS % (AUTO) 0 % (0-10); EOSINOPHILS # (AUTO) 0.1 10^3/uL (0.0-0.3); EOSINOPHILS % (AUTO) 2 % (0-10); HEMATOCRIT 41 % (40-54); HEMOGLOBIN 15.3 g/dL (13.3-17.7); LYMPHOCYTES # (AUTO) 1.4 10^3/uL (1.0-4.0); LYMPHOCYTES % (AUTO) 16 % (12-44); MEAN CORPUSCULAR HEMOGLOBIN 31 pg (25-34); MEAN CORPUSCULAR HGB CONC 37 g/dL (32-36); MEAN CORPUSCULAR VOLUME 84 fL (80-99); MEAN PLATELET VOLUME 8.9 fL (9.0-12.2); MONOCYTES # (AUTO) 1.1 10^3/uL (0.0-1.0); MONOCYTES % (AUTO) 12 % (0-12); NEUTROPHILS # (AUTO) 6.1 10^3/uL (1.8-7.8); NEUTROPHILS % (AUTO) 70 % (42-75); PLATELET COUNT 231 10^3/uL (130-400); WHITE BLOOD COUNT 8.7 10^3/uL (4.3-11.0)
[2022-10-08 05:11] LABS: CHLORIDE 107 MMOL/L (98-107); POTASSIUM 3.1 MMOL/L (3.6-5.0); SODIUM 138 MMOL/L (135-145)
[2022-10-08 05:12] LABS: CALCIUM 8.5 MG/DL (8.5-10.1)
[2022-10-08 05:13] LABS: GLUCOSE 102 MG/DL (70-105)
[2022-10-08 05:15] LABS: CARBON DIOXIDE 17 MMOL/L (21-32)
[2022-10-08 05:17] LABS: CREATININE SERUM 0.55 MG/DL (0.60-1.30); GFR ESTIMATED 145
[2022-10-08 05:18] LABS: BUN/CREATININE RATIO 4
[2022-10-08 05:19] LABS: MAGNESIUM 1.9 MG/DL (1.6-2.4)
[2022-10-08] MEDS ORDERED: KCL 20 MEQ TAB (K-DUR) PO ONE (05:45)
[2022-10-08] MEDS ORDERED: LACTATED RINGERS 1,000 ML IV ONE (09:14)
[2022-10-08] MEDS ORDERED: LACTATED RINGERS 1,000 ML IV SCH (09:15)
[2022-10-08] MEDS: ENOXAPARIN 40 MG/0.4 ML (LOVENOX) SYR SC SCH (10:35)
[2022-10-08] MEDS ORDERED: INSU100I42 INJ (14:34)
--- NOTE | 2022-10-08 16:08 | Discharge Summary ---
Discharge Summary Hospital Course Was the Problem List Reviewed?: Yes Problems/Dx: (1) T1DM (type 1 diabetes mellitus) Status: Acute Qualifiers: Qualified Codes: E10.10 - Type 1 diabetes mellitus with ketoacidosis without coma (2) Lactic acidosis Status: Resolved (3) SALVADOR (acute kidney injury) Status: Resolved (4) High anion gap metabolic acidosis Status: Resolved (5) Hypophosphatemia Status: Acute (6) Hypokalemia Status: Acute Hospital Course Date of Admission: Oct 06, 2022 at 10:30 Admission Diagnosis : T1DM with DKA Family Physician/Provider: NylaLocal Physician Date of Discharge: 10/08/22 Discharge Diagnosis: T1DM with DKA, SALVADOR, lactic acidosis Hospital Course: Handy Crouch is a 22 year old male with T1DM who was admitted with DKA. He says he took his pump off because he was worried about going low and he forgot to put it back on. He was found to be in severe DKA. This is his first time ever having DKA. He has been diabetic for about four years. He was treated with IV fluids and insulin and improved. He had an SALVADOR and lactic acidosis which improved. He does not have a primary care physician. He used to follow at [facility] and has been getting refills from them. He was set up to establish with Mini Herrmann at [facility] in [place] tomorrow, 10/09. He was given a prescription for insulin. He was discharged home in stable condition. Labs and Pending Lab Test: Laboratory Tests 10/07/22 16:58: Glucometer 186H 10/07/22 17:58: Glucometer 173H 10/07/22 19:01: Glucometer 173H 10/07/22 19:57: Glucometer 206H 10/07/22 21:00: Glucometer 229H 10/07/22 22:02: Glucometer 220H 10/07/22 22:03: Sodium Level 138, Potassium Level 3.1L, Chloride Level 107, Carbon Dioxide Level 17L, Anion Gap 14, Blood Urea Nitrogen 3L, Creatinine 0.69, Estimat Glomerular Filtration Rate 136, BUN/Creatinine Ratio 4, Glucose Level 218H, Calcium Level 8.5 10/07/22 23:02: Glucometer 187H 10/08/22 00:02: Glucometer 166H 10/08/22 01:00: Glucometer 158H 10/08/22 01:53: Glucometer 147H 10/08/22 03:00: Glucometer 132H 10/08/22 03:58: Glucometer 107 10/08/22 04:12: White Blood Count 8.7, Red Blood Count 4.88, Hemoglobin 15.3, Hematocrit 41, Mean Corpuscular Volume 84, Mean Corpuscular Hemoglobin 31, Mean Corpuscular Hemoglobin Concent 37H, Red Cell Distribution Width 12.9, Platelet Count 231, Mean Platelet Volume 8.9L, Immature Granulocyte % (Auto) 0, Neutrophils (%) (Auto) 70, Lymphocytes (%) (Auto) 16, Monocytes (%) (Auto) 12, Eosinophils (%) (Auto) 2, Basophils (%) (Auto) 0, Neutrophils # (Auto) 6.1, Lymphocytes # (Auto) 1.4, Monocytes # (Auto) 1.1H, Eosinophils # (Auto) 0.1, Basophils # (Auto) 0.0, Immature Granulocyte # (Auto) 0.0, Sodium Level 138, Potassium Level 3.1L, Chloride Level 107, Carbon Dioxide Level 17L, Anion Gap 14, Blood Urea Nitrogen < 2L, Creatinine 0.55L, Estimat Glomerular Filtration Rate 145, BUN/Creatinine Ratio 4, Glucose Level 102, Calcium Level 8.5, Phosphorus Level 2.0L, Magnesium Level 1.9, Beta-Hydroxybutyrate (Chem panel) 0.24 10/08/22 05:00: Glucometer 108 10/08/22 05:55: Glucometer 110 10/08/22 06:55: Glucometer 126H 10/08/22 08:03: Glucometer 141H 10/08/22 10:50: Glucometer 189H 10/08/22 14:00: Glucometer 187H 10/08/22 15:54: Glucometer 161H Microbiology 10/06/22 MRSA Screen - Final, Complete MRSA not isolated Home Meds Active Admelog Solostar (Insulin Lispro) 100 Unit/Ml Insuln.pen 0 INJ UD USES VIA INSULIN PUMP Assessment/Pt Instructions Take medications as prescribed. Use your insulin pump. Use your continuous glucose monitor. Establish care with [facility] tomorrow. Return with worsening shortness of breath, abdominal pain, nausea, vomiting, or if you feel like you are getting worse. Discharge Planning: >30 minutes discharge planning Discharge Instructions Discharge Diet: ADA Diet Activity as Tolerated: Yes Consultations TeleICU Discharge Physical Examination Vital Signs Vital Signs Date Time Temp Pulse Resp B/P (MAP) Pulse Ox O2 Delivery O2 Flow Rate FiO2 10/08/22 15:00 110 25 136/87 (103) 99 Room Air 10/08/22 12:00 37.0 General Appearance: No Apparent Distress, WD/WN Respiratory: Lungs Clear, No Respiratory Distress Cardiovascular: Regular Rate, Rhythm, No Murmur Gastrointestinal: Normal Bowel Sounds, Soft Extremity: Normal Inspection, No Pedal Edema Skin: Normal Color, Warm/Dry Neurologic/Psychiatric: Alert, Normal Mood/Affect Allergies: Coded Allergies: No Known Drug Allergies (Unverified , 10/06/22) Copy Copies To 1: [facility] [place] Discharge Summary Date of Admission Oct 06, 2022 at 10:30 Date of Discharge Discharge Date: Oct 08, 2022 Discharge Time: 16:07 Admission Diagnosis T1DM with DKA Consults/Procedures Consulations TeleICU Discharge Diagnosis T1DM with DKA Hypokalemia Hypophosphatemia High anion gap metabolic acidosis Lactic acidosis SALVADOR (1) T1DM (type 1 diabetes mellitus) Status: Acute Qualifiers: Qualified Codes: E10.10 - Type 1 diabetes mellitus with ketoacidosis without coma (2) Lactic acidosis Status: Resolved (3) SALVADOR (acute kidney injury) Status: Resolved (4) High anion gap metabolic acidosis Status: Resolved (5) Hypophosphatemia Status: Acute (6) Hypokalemia Status: Acute JUHI SCHAFER MD Oct 08, 2022 16:07
== END 2022-10-08 16:30 | disposition home or self-care (01) | DRG 638 ==
LOC: ER FS 06:43 → ICU 10:30
PROVIDERS: ADMIT Internal Medicine; ATTEND Internal Medicine
DX: E10.10 Type 1 diabetes mellitus with ketoacidosis without coma (principal); I47.1 Supraventricular tachycardia; N17.9 Acute kidney failure, unspecified; E86.0 Dehydration; R21 Rash and other nonspecific skin eruption; E87.6 Hypokalemia; E83.39 Other disorders of phosphorus metabolism; Z20.822 Contact with and (suspected) exposure to COVID-19
CPT/HCPCS: 36415; 71045; 71275; 80048; 80053; 81000; 82010; 82805; 82947; 83036; 83605; 83735; 84100; 84145; 84443; 84484; 85007; 85025; 85027; 85379; 86141; 87081; 87636; 93005; 93041; Q9967

== ENCOUNTER 2023-06-23 16:30 | Inpatient (IN) | payer MEDICAID, OTHER ==
[~2023-06-23] VITALS: Ht 182.9 cm; Wt 95.9 kg
[~2023-06-23 16:30] MED LIST: INSU100I42; INSU100I42 INJ
[2023-06-23] MEDS ORDERED: KETOROLAC INJ 15 MG/ML VIAL IVP STA (16:40)
[2023-06-23] MEDS ORDERED: ONDANSETRON INJECTION 4 MG/2 ML (SDV) IVP STA (16:40)
[2023-06-23] MEDS ORDERED: NS IV 1000 ML 1,000 ML IV STA ×2 (16:40→17:19)
[2023-06-23] MEDS ORDERED: inSUlin (REGULAR) HUMAN 1 UNIT/0.01 ML (CHARGE PER UNIT) IV STA ×2 (16:40→17:58)
[2023-06-23 17:01] LABS: BASOPHILS # (AUTO) 0.3 10^3/uL (0.0-0.1); BASOPHILS % (AUTO) 1 % (0-10); EOSINOPHILS % (AUTO) 0 % (0-10); HEMATOCRIT 56 % (40-54); HEMOGLOBIN 19.5 g/dL (13.3-17.7); LYMPHOCYTES # (AUTO) 2.2 10^3/uL (1.0-4.0); LYMPHOCYTES % (AUTO) 8 % (12-44); MEAN CORPUSCULAR HEMOGLOBIN 31 pg (25-34); MEAN CORPUSCULAR HGB CONC 35 g/dL (32-36); MEAN CORPUSCULAR VOLUME 87 fL (80-99); MEAN PLATELET VOLUME 9.4 fL (9.0-12.2); MONOCYTES # (AUTO) 1.3 10^3/uL (0.0-1.0); MONOCYTES % (AUTO) 5 % (0-12); NEUTROPHILS # (AUTO) 22.8 10^3/uL (1.8-7.8); NEUTROPHILS % (AUTO) 84 % (42-75); PLATELET COUNT 589 10^3/uL (130-400); WHITE BLOOD COUNT 27.2 10^3/uL (4.3-11.0)
--- NOTE | 2023-06-23 17:02 | ED General ---
General Chief Complaint: General Problems/Pain Stated Complaint: TROUBLE BREATHING Nursing Triage Note: Patient has presented to ER with cc of hard to breath. Patient reports that he is going into DKA. He reports being a diabetic, he has not checked his blood sugar for the last month, he has not had insulin for the last 3 to 4 weeks. Source of Information: Patient, Family, Old Records History of Present Illness Date Seen by Provider: Jun 23, 2023 Time Seen by Provider: 16:37 Initial Comments 23-year-old male presenting with complaints of difficulty breathing and having nausea and vomiting since this morning. He states he is diabetic but had been out of his medicine as he was trying to get back on insurance. He has not had insulin for at least 3 to 4 weeks. He states he is also not checked his sugar for at least 3 or 4 weeks. He follows with Mini Herrmann at the [facility] clinic. He states he had similar episode in September 2022 and was in DKA at that time. He is hyperventilating and breathing hard and fast on arrival to the ED. He denies having fever or chills, diarrhea, pain with urination. Timing/Duration: 12-24 Hours Severity: Severe Modifying Factors: worse with Eating Associated Systoms: Chest Pain (Tightness); No Cough, No Diaphoresis, No Fev er/Chills, No Headaches, No Loss of Appetite; Malaise, Nausea/Vomiting; No Rash, No Seizure; Shortness of Air; No Syncope, No Weakness Allergies and Home Medications Allergies Coded Allergies: No Known Drug Allergies (Unverified , 10/06/22) Patient Home Medication List Home Medication List Reviewed: Yes Insulin Lispro (Admelog Solostar) 100 Unit/Ml Insuln.pen, 0 INJ UD Prescribed by: JUHI SCHAFER on 10/08/22 [id number] Review of Systems Review of Systems Constitutional: No chills, No fever EENTM: no symptoms reported Respiratory: see HPI Cardiovascular: see HPI Gastrointestinal: see HPI Genitourinary: no symptoms reported Musculoskeletal: no symptoms reported Skin: no symptoms reported Psychiatric/Neurological: Anxiety Past Ncjwfxw-Qenvbi-Rtitbq Hx Patient Social History Tobacco Use?: No Use of E-Cig and/or Vaping dev: No Substance use?: No Alcohol Use?: No Past Medical History Surgery/Hospitalization HX: Diabetes poorly controlled, DKA September 2022 Diabetes, Insulin dep Family Medical History No Pertinent Family Hx Physical Exam Vital Signs Vital Signs - First Documented 06/23/23 06/23/23 16:42 17:52 Temp 36.2 Pulse 158 Resp 40 B/P (MAP) 176/113 (134) Pulse Ox 97 O2 Delivery Room Air Capillary Refill : Height, Weight, BMI Height: '" Weight: lbs. oz. kg; 30.00 BMI Method: General Appearance: Anxious, Moderate Distress (Hyperventilating and breathing fast) HEENT: PERRL/EOMI; No Moist Mucous Membranes (Dry mucous membranes) Neck: Full Range of Motion, Normal Inspection, Non Tender, Supple Respiratory: Chest Non Tender, Normal Breath Sounds, Accessory Muscle Use (Hy perventilating) Cardiovascular: Normal Peripheral Pulses, Tachycardia Gastrointestinal: Normal Bowel Sounds, No Pulsatile Mass, Non Tender, Soft Rectal: Deferred Extremity: Normal Capillary Refill, Normal Inspection, No Pedal Edema Neurologic/Psychiatric: Alert, Oriented x3, center machine set up operator II-XII Norm as Tested Skin: Normal Color, Warm/Dry Progress/Results/Core Measures Suspected Sepsis SIRS Temperature: Pulse: 158 Respiratory Rate: 40 Laboratory Tests 06/23/23 16:33: White Blood Count 27.2H Blood Pressure 176 /113 Mean: 134 Laboratory Tests 06/23/23 16:33: Creatinine 0.79, INR Comment 1.1, Platelet Count 589H, Total Bilirubin 0.3 Results/Orders Lab Results Laboratory Tests Test 06/23/23 16:33 06/23/23 16:38 06/23/23 17:38 06/23/23 17:41 Range/Units White Blood Count 27.2 H 4.3-11.0 10^3/uL Red Blood Count 6.39 H 4.30-5.52 10^6/uL Hemoglobin 19.5 H 13.3-17.7 g/dL Hematocrit 56 H 40-54 % Mean Corpuscular Volume 87 80-99 fL Mean Corpuscular Hemoglobin 31 25-34 pg Mean Corpuscular Hemoglobin Concent 35 32-36 g/dL Red Cell Distribution Width 13.9 10.0-14.5 % Platelet Count 589 H 130-400 10^3/uL Mean Platelet Volume 9.4 9.0-12.2 fL Immature Granulocyte % (Auto) 2 % Neutrophils (%) (Auto) 84 H 42-75 % Lymphocytes (%) (Auto) 8 L 12-44 % Monocytes (%) (Auto) 5 0-12 % Eosinophils (%) (Auto) 0 0-10 % Basophils (%) (Auto) 1 0-10 % Neutrophils # (Auto) 22.8 H 1.8-7.8 10^3/uL Lymphocytes # (Auto) 2.2 1.0-4.0 10^3/uL Monocytes # (Auto) 1.3 H 0.0-1.0 10^3/uL Eosinophils # (Auto) 0.0 0.0-0.3 10^3/uL Basophils # (Auto) 0.3 H 0.0-0.1 10^3/uL Immature Granulocyte # (Auto) 0.6 H 0.0-0.1 10^3/uL Neutrophils % (Manual) 86 % Lymphocytes % (Manual) 9 % Monocytes % (Manual) 5 % Platelet Estimate INCREASED Blood Morphology Comment NORMAL Prothrombin Time 14.8 H 12.2-14.7 SEC INR Comment 1.1 0.8-1.4 Activated Partial Thromboplast Time 27 24-35 SEC Venous Blood pH 6.95 L 7.31-7.41 Venous Blood Partial Pressure CO2 15 L 40-52 MMHG Venous Blood HCO3 3 L 22-28 MMOL/L Sodium Level 137 135-145 MMOL/L Potassium Level 4.8 3.6-5.0 MMOL/L Chloride Level 99 98-107 MMOL/L Carbon Dioxide Level 3 *L 21-32 MMOL/L Anion Gap 35 H 5-14 MMOL/L Blood Urea Nitrogen 12 7-18 MG/DL Creatinine 0.79 0.60-1.30 MG/DL Estimat Glomerular Filtration Rate 130 BUN/Creatinine Ratio 15 Glucose Level 427 *H 70-105 MG/DL Calcium Level 9.8 8.5-10.1 MG/DL Corrected Calcium 8.5-10.1 MG/DL Magnesium Level 2.3 1.6-2.4 MG/DL Total Bilirubin 0.3 0.1-1.0 MG/DL Aspartate Amino Transf (AST/SGOT) 8 5-34 U/L Alanine Aminotransferase (ALT/SGPT) 15 0-55 U/L Alkaline Phosphatase 125 40-136 U/L Troponin I < 0.30 <0.30 NG/ML Pro-B-Type Natriuretic Peptide < 36.0 <125.0 PG/ML Total Protein 8.7 H 6.4-8.2 GM/DL Albumin 5.6 H 3.2-4.5 GM/DL Lipase 120 H 8-78 U/L Glucometer 433 *H 344 H 70-110 MG/DL SARS-CoV-2 RNA (RT-PCR) Detected H Not Detecte My Orders Orders - JOSE VELÁZQUEZ MD Cbc With Automated Diff (06/23/23 16:40) Magnesium (06/23/23 16:40) Chest 1 View Ap/Pa Only (06/23/23 16:40) Ekg Tracing (06/23/23 16:40) Comprehensive Metabolic Panel (06/23/23 16:40) Protime With Inr (06/23/23 16:40) Partial Thromboplastin Time (06/23/23 16:40) O2 (06/23/23 16:40) Monitor-Rhythm Ecg Trace Only (06/23/23 16:40) Ed Iv/Invasive Line Start (06/23/23 16:40) Lipase (06/23/23 16:40) Troponin I Fs (06/23/23 16:40) Probnp Fs (06/23/23 16:40) Accucheck Stat ONCE (06/23/23 16:40) Venous Blood Gas (06/23/23 16:40) Ns Iv 1000 Ml (Ns Iv 1000 Ml) (06/23/23 16:40) Ondansetron Injection (Ondansetron Inj (06/23/23 16:40) Insulin (Regular) Per Unit (Insulin (Reg (06/23/23 16:40) Ketorolac Injection (Ketorolac Injection (06/23/23 16:40) Manual Differential (06/23/23 16:33) Ns Iv 1000 Ml (Ns Iv 1000 Ml) (06/23/23 17:19) Covid 19 Inhouse Test (06/23/23 17:39) Ed Admission (Communication) (06/23/23 17:39) Insulin (Regular) Per Unit (Insulin (Reg (06/23/23 17:58) Vital Signs/I&O 06/23/23 06/23/23 16:42 17:52 Temp 36.2 Pulse 158 138 Resp 40 36 B/P (MAP) 176/113 (134) 181/86 Pulse Ox 97 97 O2 Delivery Room Air Capillary Refill : Blood Pressure Mean: 134 Point of Care Testing Finger Stick Blood Glucose: 433 Blood Glucose Action Taken: Dr. Velázquez aware. Progress Note #1: Progress Note Differential diagnosis includes DKA, medicine noncompliance, electrolyte imbalance, anxiety, panic attack, dehydration. Establish peripheral IV access and send labs for complete blood count, comprehensive metabolic profile, magnesium, lipase, venous blood gas. Urinalysis to look at his hydration and look for infection. 1 view chest x-ray to look for pathology in his chest with him having the shortness of breath and hyperventilation. Electrocardiogram to look for ischemia or arrhythmia. Administer normal saline 1 L IV fluid bolus for hydration, Zofran 4 mg IV for nausea and vomiting, Toradol 15 mg IV for body pain, regular insulin 10 units IV for hyperglycemia. His Accu-Chek was 433. Progress Note #2: Time: 17:09 Progress Note Labs show elevated white blood cell count of 27.2 with elevated hemoglobin of 19.5. This might go along with some hemoconcentration. His venous blood gas had a pH of 6.95. His Accu-Chek was 433. Electrocardiogram shows sinus tachycardia with heart rate 149. I placed a call to Dr. Crowell, the on-call hospitalist for [facility] about possible admission to the ICU. 1740 I did discuss the case with Dr. Crowell, the [facility] hospitalist and she accepted the patient for ICU admission for DKA and insulin drip. Patient is getting a second liter of IV fluids here in the ED and his sugar did come down to 344. A second bolus of insulin 5 units IV was given to try and further help with his elevated glucose until he could get to the ICU and start an insulin drip. Progress Note #3: Time: 18:15 Progress Note His COVID swab came back positive for COVID. Will let Dr. Crowell know ECG Initial ECG Impression Date: Jun 23, 2023 Initial ECG Impression Time: 16:48 Initial ECG Rate: 149 Initial ECG Rhythm: S.Tach Initial ECG Comparisson: Changed (September 2022 he had what looked like SVT on his ECG) Comment His electrocardiogram showed junctional tachycardia versus sinus tachycardia with a heart rate of 149 bpm. MD interval [address] elevation. QT interval 278 ms and QTc interval 363 ms. Appears slightly changed from readings in September 2022 when it looks to be more SVT at that time. Diagnostic Imaging Diagonstic Imaging: Xray Plain Films/CT/US/NM/MRI: chest Comments [facility] [place], [place] NAME: DAVID GARCIA [facility] REC#: [id number] PT STATUS: REG ER : 2002 PHYSICIAN: JOSE VELÁZQUEZ MD ADMIT DATE: 06/23/23/ER FS Signed Date of Exam:06/23/23 CHEST 1 VIEW AP/PA ONLY INDICATION: Shortness of breath. Frontal chest obtained at 4:43 p.m. and compared to 10/06/2022. FINDINGS: Heart and mediastinal silhouette are normal in appearance. The lungs are clear. There is no pneumothorax or pleural fluid. IMPRESSION: Negative chest. Dictated by: Dictated on workstation # [id number] Dict: 06/23/23 1656 Trans: 06/23/23 1720 [id number] Interpreted by: LUZ MARIA VASQUEZ MD Electronically signed by: LUZ MARIA VASQUEZ MD 06/23/231719 Reviewed: Reviewed by Me Critical Care Note Critical Care Total Time (minutes) 45 minutes Progress I spent at least 45 minutes critical care time with the patient. Time excludes separately billable procedures. Time spent in obtaining history from patient and family, reviewing prior visit with DKA, ordering test and reviewing results, ordering interventions and reviewing response, discussion with consultants, documentation in the chart. Patient was at risk of cardiovascular compromise and collapse with his DKA. He required my immediate direct intervention and care to help stabilize his condition and arrange for transfer to higher level of care. Departure Communication (Admissions) Time/Spoke to Admitting Phy: 17:40 d/w Dr. Crowell, Hospitalist for [facility], about the patient presentation and history of not having his insulin or medicine for at least 3-4 weeks since he was off his parents insurance. He reports that he is supposed to get back with Minifortunato Herrmann and get medication restarted this week. He just got his insurance reinstated. He started feeling bad this morning and has been breathing fast and hard as well as having nausea and vomiting. He denies having any fever or chills and no cough or diarrhea. Labs showed a sugar of 433 but he has a pH of 6.95, elevated white blood cell count of 27.2 and hemoglobin 19.5. Some of this may be hemoconcentration and dehydration. His electrolytes do show a CO2 level of 3 with an anion gap of 35 after along with DKA. She requested a COVID swab and accepted him for admission to the ICU as a inpatient for DKA. Impression Primary Impression: DKA (diabetic ketoacidosis) Qualified Codes: E10.10 - Type 1 diabetes mellitus with ketoacidosis without coma Additional Impression: COVID-19 Disposition: 30 STILL A PATIENT Condition: Critical Admissions Decision to Admit Reason: Admit from ER (General) Decision to Admit/Date: Jun 23, 2023 Time/Decision to Admit Time: 17:40 Departure-Patient Inst. Referrals: NO,LOCAL PHYSICIAN (PCP/Family) Primary Care Physician JOSE VELÁZQUEZ MD Jun 23, 2023 17:02
[2023-06-23 17:05] LABS: INR 1.1 (0.8-1.4); PROTHROMBIN TIME PATIENT 14.8 SEC (12.2-14.7)
[2023-06-23 17:10] LABS: LYMPHOCYTES % (MANUAL) 9 %; MONOCYTES % (MANUAL) 5 %; NEUTROPHILS % (MANUAL) 86 %; PLATELET ESTIMATE INCREASED; RBC MORPH NORMAL
[2023-06-23 17:15] LABS: BUN/CREATININE RATIO 15; CHLORIDE 99 MMOL/L (98-107); CREATININE SERUM 0.79 MG/DL (0.60-1.30); GFR ESTIMATED 130; POTASSIUM 4.8 MMOL/L (3.6-5.0); SODIUM 137 MMOL/L (135-145)
[2023-06-23 17:16] LABS: ALANINE AMINOTRANSFERASE 15 U/L (0-55); ALBUMIN 5.6 GM/DL (3.2-4.5); ALKALINE PHOSPHATASE 125 U/L (40-136); BILIRUBIN,TOTAL 0.3 MG/DL (0.1-1.0); CALCIUM 9.8 MG/DL (8.5-10.1); LIPASE 120 U/L (8-78); MAGNESIUM 2.3 MG/DL (1.6-2.4); TOTAL PROTEIN 8.7 GM/DL (6.4-8.2)
[2023-06-23 17:17] LABS: CARBON DIOXIDE 3 MMOL/L (21-32)
[2023-06-23 17:18] LABS: GLUCOSE 427 MG/DL (70-105)
[2023-06-23] MEDS ORDERED: 1/2 NS IV SOLUTION 1000 ML 1,000 ML IV ONE (19:21)
[2023-06-23] MEDS ORDERED: D5 1/2 NS 1,000 ML IV 1,000 ML IV ONE (19:22)
[2023-06-23] MEDS ORDERED: NS IV 1000 ML 1,000 ML ONE (19:22)
[2023-06-23] MEDS ORDERED: POTASSIUM CL 10MEQ/50ML IVPB 100 ML IV ONE (19:40)
[2023-06-23] MEDS ORDERED: ONDANSETRON INJECTION 4 MG/2 ML (SDV) IV PRN (19:45)
[2023-06-23] MEDS ORDERED: diphenhydrAMINE INJ 50 MG/ML VIAL IVP PRN (19:45)
[2023-06-23] MEDS ORDERED: cloNIDine 0.1 MG TABLET PO PRN (19:45)
[2023-06-23] MEDS: POTASSIUM CL 10MEQ/50ML IVPB 50 ML IV SCH ×5 (19:45→22:24)
[2023-06-23] MEDS ORDERED: oxyCODONE IMMEDIATE RELEASE 5 MG TABLET PO PRN (19:45)
[2023-06-23] MEDS ORDERED: ACETAMINOPHEN 325 MG TABLET PO PRN (19:45)
[2023-06-23] MEDS ORDERED: MELATONIN 3 MG TABLET PO PRN (19:45)
[2023-06-23] MEDS ORDERED: diphenhydrAMINE 25 MG TABLET PO PRN (19:45)
[2023-06-23] MEDS ORDERED: HYDROmorphone INJECTION 2 MG/ML VIAL IV PRN (19:45)
[2023-06-23] MEDS ORDERED: D5 1/2 NS 1,000 ML IV 1,000 ML IV SCH (19:45)
[2023-06-23] MEDS ORDERED: LORazepam 0.5 MG TABLET PO PRN (19:45)
[2023-06-23] MEDS: 1/2 NS IV SOLUTION 1000 ML 1,000 ML IV SCH (19:45)
[2023-06-23] MEDS ORDERED: BISACODYL 10 MG SUPPOSITORY PR PRN (19:45)
[2023-06-23] MEDS ORDERED: LACTULOSE SYRUP 10GM/15ML 30ML UDC PO PRN (19:45)
[2023-06-23] MEDS ORDERED: ONDANSETRON 4 MG ORAL DISSOLVE TABLET PO PRN (19:45)
[2023-06-23] MEDS ORDERED: NS IV 500 ML 500 ML IV PRN (19:45)
[2023-06-23] MEDS ORDERED: ANTACID SUSPENSION 30 ML UDC PO PRN (19:45)
[2023-06-23] MEDS ORDERED: NS IV 1000 ML 1,000 ML IV SCH (19:45)
[2023-06-23 20:10] VITALS: BP 181/86
--- NOTE | 2023-06-23 20:38 | Tele-ICU Progress Note ---
Progress Note 23M with IDDM admitted with DKA. Has had DM1 x4 years. 1st episode of DKA 10/06/22 after turning off insulin pump and forgetting to turn it back on. He was treated overnight with insulin gtt and discharged. Now being admitted after running out of medication for the past 3-4 weeks. Apparently he is transitioning off of his parents' insurance and there was some delay in filling the new prescription. He was due to pick it up today. But he had progressive symptoms similar to his last episode of DKA. He was still wearing the insulin pump and noted uptrending glucose. Presented to ED for treatment of DKA. A/P: - DKA: insulin gtt per protocol. When anion gap closes, transition to SC insulin. Will need to discuss financial limitations and make sure there is a regimen that is accessible to him. - tachycardia: HR still in the 140s, secondary to acidosis, hyperglycemia and hypovolemia. Will give additional 1L IVF now and reassess. Patient assessed via real time audiovisual communication system. CCT 8 min Focused Exam Height, Weight, BMI Height: '" Weight: lbs. oz. kg; 28.66 BMI Method: CINDI SORIANO MD Jun 23, 2023 20:38
[2023-06-23] MEDS: DOCUSATE SODIUM 100 MG CAPSULE PO SCH (22:02)
[2023-06-23] MEDS: ENOXAPARIN 40 MG/0.4 ML SYRINGE SC SCH (22:51)
[2023-06-23 23:16] LABS: BUN/CREATININE RATIO 7; CALCIUM 8.7 MG/DL (8.5-10.1); CREATININE SERUM 1.23 MG/DL (0.60-1.30); GFR ESTIMATED 86; GLUCOSE 246 MG/DL (70-105); POTASSIUM 4.4 MMOL/L (3.6-5.0); SODIUM 134 MMOL/L (135-145)
[2023-06-23] MEDS ORDERED: RT-ALBUTEROL SULF 2.5 MG/3 ML PRE-MIX VIAL IH PRN (23:30)
[2023-06-23 23:31] LABS: CHLORIDE 110 MMOL/L (98-107)
[2023-06-23 23:42] LABS: CARBON DIOXIDE < 5 MMOL/L (21-32)
[2023-06-24] MEDS: POTASSIUM CL 10MEQ/50ML IVPB 50 ML IV SCH ×11 (00:08→21:53)
[2023-06-24] MEDS: D5 LR 1,000 ML IV SOLN 1,000 ML IV SCH ×7 (00:08→22:53)
[2023-06-24] MEDS: 1/2 NS IV SOLUTION 1000 ML 1,000 ML IV SCH (00:08)
[2023-06-24] MEDS: LACTATED RINGERS 1,000 ML 1,000 ML IV SCH ×4 (01:48→22:00)
[2023-06-24 03:44] LABS: BUN/CREATININE RATIO 6; CALCIUM 8.5 MG/DL (8.5-10.1); CHLORIDE 110 MMOL/L (98-107); CREATININE SERUM 1.14 MG/DL (0.60-1.30); GFR ESTIMATED 94; GLUCOSE 212 MG/DL (70-105); POTASSIUM 3.8 MMOL/L (3.6-5.0); SODIUM 132 MMOL/L (135-145)
[2023-06-24 03:51] LABS: CARBON DIOXIDE < 5 MMOL/L (21-32)
[2023-06-24 04:47] LABS: ABG BASE EXCESS -22.2 MMOL/L (-2.5-2.5); ABG OXYGEN SATURATION 97 % (94-100); ABG PO2 91 MMHG (79-93)
[2023-06-24 04:54] LABS: BASOPHILS # (AUTO) 0.1 10^3/uL (0.0-0.1); BASOPHILS % (AUTO) 0 % (0-10); EOSINOPHILS % (AUTO) 0 % (0-10); HEMATOCRIT 44 % (40-54); HEMOGLOBIN 16.2 g/dL (13.3-17.7); LYMPHOCYTES # (AUTO) 1.8 10^3/uL (1.0-4.0); LYMPHOCYTES % (AUTO) 9 % (12-44); MEAN CORPUSCULAR HEMOGLOBIN 31 pg (25-34); MEAN CORPUSCULAR HGB CONC 37 g/dL (32-36); MEAN CORPUSCULAR VOLUME 83 fL (80-99); MONOCYTES # (AUTO) 1.3 10^3/uL (0.0-1.0); MONOCYTES % (AUTO) 7 % (0-12); NEUTROPHILS # (AUTO) 15.9 10^3/uL (1.8-7.8); NEUTROPHILS % (AUTO) 82 % (42-75); PLATELET COUNT 383 10^3/uL (130-400); WHITE BLOOD COUNT 19.3 10^3/uL (4.3-11.0)
[2023-06-24 05:01] LABS: ALLENS TEST YES-POS; INSPIRED O2 RA; PATIENT TEMP 36.5; VENTILATOR NO
[2023-06-24 05:02] LABS: ABG PCO2 13 MMHG (35-45); ABG TCO2 5.4 MMOL/L (21.0-31.0)
[2023-06-24 05:11] LABS: ALBUMIN 4.3 GM/DL (3.2-4.5); BILIRUBIN,TOTAL 0.6 MG/DL (0.1-1.0); CALCIUM 8.5 MG/DL (8.5-10.1); CREATININE SERUM 1.06 MG/DL (0.60-1.30); MAGNESIUM 1.7 MG/DL (1.6-2.4); POTASSIUM 3.8 MMOL/L (3.6-5.0); TOTAL PROTEIN 6.9 GM/DL (6.4-8.2)
[2023-06-24] MEDS ORDERED: MAGNESIUM 1 GM/100 ML IVPB 200 ML IV ONE (05:35)
[2023-06-24] MEDS: MAGNESIUM 1 GM/100 ML IVPB 100 ML IV SCH ×2 (05:43→06:00)
[2023-06-24] MEDS: POTASSIUM CHLORIDE 20 MEQ TABLET PO SCH (06:00)
[2023-06-24] MEDS ORDERED: POTASSIUM PHOSPHATE INJ 30 MM in NS (IVPB) 250 ML 250 ML IV ONE (06:30)
--- NOTE | 2023-06-24 08:51 | Tele-ICU Progress Note ---
Subjective Date Seen by a Provider: Jun 24, 2023 Subjective/Events-last exam This virtual visit was conducted using real time audio/video. Thank you for asking us to see this patient for DKA Recent events: PE:Comfortable. VSS. O2 sat 99% on RA HEENT: No obvious masses, adenopathy or JVD. Chest: clear to auscultation. CV: RRR S1 S2 No murmur or added sounds. Abd: Non-tender. Bowel sounds Y. : Unremarkable. Lorenzana . MIDDLE SCHOOL BAND TEACHER/psychiatric: Grossly intact. No obvious focal findings. Extremities: No edema. Capillary refill < 3 seconds. Skin: unremarkable. Results: Elevated BG 219, AG 15, WCC 19.3, decreased. Decreased CO2 5, PO4 1.0. B.2/ . CXR: Clear. Available chart/ vitals / labs / images reviewed. Video assessment done using teleICU camera, rest of exam as per RN. A/P: Critical Care: critically ill patient. Cont. IVF, IV ins., replace PO4. Discussed with SADIA Gonsales. Asked RN to reach out to eICU if any questions or concerns later. Time spent with patient/coordination of care with other health professionals (mins):20 Sepsis Event Evaluation Height, Weight, BMI Height: '" Weight: lbs. oz. kg; 28.66 BMI Method: Exam Exam Patient acknowledged, consented, and participated in this virtual visit which was conducted using real time audio/video Vital Signs Date Time Temp Pulse Resp B/P (MAP) Pulse Ox O2 Delivery O2 Flow Rate FiO2 06/24/23 06:00 106 116/85 (95) 98 Room Air 06/24/23 05:00 103 123/83 (96) 99 Room Air 06/24/23 04:00 100 Room Air 06/24/23 04:00 110 145/97 (113) 98 Room Air 06/24/23 03:00 106 140/93 (109) 99 Room Air 06/24/23 02:00 113 135/102 (113) 99 Room Air 06/24/23 01:45 114 127/92 (104) 99 Room Air 06/24/23 01:00 113 06/24/23 01:00 113 143/109 (120) 99 Room Air 06/24/23 00:00 115 156/97 (116) 99 Room Air 06/24/23 00:00 100 Room Air 06/23/23 23:00 118 167/96 (119) 99 Room Air 06/23/23 22:00 135 174/118 (132) 98 Room Air 06/23/23 21:52 125 149/113 (122) 100 Room Air 06/23/23 21:45 124 196/121 (142) 100 Room Air 06/23/23 21:30 126 99 Room Air 06/23/23 21:15 122 162/104 (120) 100 Room Air 06/23/23 21:00 128 171/111 (131) 100 Room Air 06/23/23 20:49 124 164/117 (126) 99 Room Air 06/23/23 20:40 129 06/23/23 20:10 36.2 138 97 21 06/23/23 20:00 06/23/23 19:30 100 Room Air 06/23/23 19:15 36.7 151 30 173/97 (122) 100 Room Air 06/23/23 19:14 150 06/23/23 17:52 36.2 138 36 181/86 97 06/23/23 16:42 158 40 176/113 (134) 97 Room Air I & O 06/24/23 07:00 Intake Total 3700 ml Output Total 3550 ml Balance 150 ml Height & Weight Height: '" Weight: lbs. oz. kg; 28.66 BMI Method: General Appearance: Anxious, Moderate Distress (Hyperventilating and breathing fast) HEENT: PERRL/EOMI; No Moist Mucous Membranes (Dry mucous membranes) Neck: Full Range of Motion, Normal Inspection, Non Tender, Supple Respiratory: Chest Non Tender, Normal Breath Sounds, Accessory Muscle Use (Hyperventilating) Cardiovascular: Normal Peripheral Pulses, Tachycardia Capillary Refill: Greater Than 3 Seconds Extremity: Normal Capillary Refill, Normal Inspection, No Pedal Edema Neurologic/Psychiatric: Alert, Oriented x3, body corporate manager II-XII Norm as Tested Skin: Normal Color, Warm/Dry Results Lab Laboratory Tests 06/23/23 16:33 06/23/23 22:30 06/24/23 03:20 06/24/23 04:40 Assessment/Plan Assessment/Plan See free text. Critical Care: Critically Ill Patient COLIN AUGUSTE MD Jun 24, 2023 08:51
[2023-06-24] MEDS: DOCUSATE SODIUM 100 MG CAPSULE PO SCH ×2 (10:02→21:12)
[2023-06-24 10:54] LABS: CALCIUM 8.2 MG/DL (8.5-10.1); CREATININE SERUM 0.97 MG/DL (0.60-1.30); POTASSIUM 3.7 MMOL/L (3.6-5.0)
--- NOTE | 2023-06-24 13:19 | History & Physical-Hospitalist ---
WESLEY ANDERSON 06/24/23 1319: History of Present Illness HPI/Chief Complaint 23 yo male with a h/o Type 1 Diabetes presented to the [place] ED on 06/23 with 1 day of nausea, vomiting, shortness of breath, and tachypnea. Pt stated that he has been without his insulin lispro for 3-4 weeks due to switching insurances. Sx worsen with eating and has had associated chest tightness. He said that he has had one hospitalization for DKA in the past that presented with similar sx. Pt denied fever, diarrhea, dysuria, headache, diaphoresis, syncope. Pt endorses malaise. Today, pt states that he is feeling better and that symptoms of Chest tightness,shortness of breath, nausea, and vomiting have lessened. Pt denies fever,palpitations, abd pain, diarrhea, constipation, dysuria. Pt endorsed some cough this morning but stated that he felt like he had some phlegm stuck in his throat from previous vomiting. Source: patient, RN notes reviewed Exam Limitations: no limitations Date Seen 06/24/23 Time Seen by a Provider: 09:45 Attending Physician Mini Herrmann Aprn PCP Admitting Physician: Isidro Fair DO Attending Physician: Isidro Fair DO Referring Physician Date of Admission Jun 23, 2023 at 19:05 Home Medications & Allergies Home Medications Reviewed patient Home Medication Reconciliation performed by pharmacy medication reconciliations flight data technician and/or nursing. Patients Allergies have been reviewed. Allergies Allergies Coded Allergies No Known Drug Allergies (Hnwmuobcjr01/19/22) Past Zyfkiol-Lawktd-Cpcysy Hx Patient Social History Tobacco Use?: No Use of E-Cig and/or Vaping dev: No Substance use?: No Alcohol Use?: No Pt feels they are or have been: No Current Status Advance Directives: No Communicates: Verbally Primary Language: Qatari Preferred Spoken Language: Qatari Is interpretation needed?: No Implanted or Applied Medical D: None Past Medical History Diabetes, Insulin dep Are Your Blood Sugars Over 250: No Family Medical History No Pertinent Family Hx Review of Systems Constitutional: No fever; malaise EENTM: no symptoms reported Respiratory: cough; No short of breath Cardiovascular: No chest pain, No palpitations Gastrointestinal: No abdominal pain, No constipation, No diarrhea, No nausea, No vomiting Genitourinary: No dysuria Musculoskeletal: no symptoms reported Skin: no symptoms reported Psychiatric/Neurological: No Symptoms Reported Physical Exam Physical Exam Vital Signs Vital Signs - First Documented 06/23/23 06/23/23 06/23/23 16:42 17:52 20:10 Temp 36.2 Pulse 158 Resp 40 B/P (MAP) 176/113 (134) Pulse Ox 97 O2 Delivery Room Air FiO2 21 Capillary Refill : Greater Than 3 Seconds Height, Weight, BMI Height: '" Weight: lbs. oz. kg; 28.66 BMI Method: General Appearance: Other ( ill appearing, not in acute distress) HEENT: Moist Mucous Membranes; No Photophobia, No Scleral Icterus (L), No Scleral Icterus (R), No Tonsillar Exudate, No Tonsillar Enlargement Neck: Non Tender, Supple Respiratory: Lungs Clear, No Accessory Muscle Use, No Respiratory Distress Cardiovascular: Regular Rate, Rhythm, No Murmur, Other (radial pulses 2+ b/l) Gastrointestinal: No Organomegaly, Non Tender, Soft, Abnormal Bowel Sounds (hyperactive) Skin: Normal Color, Warm/Dry Results Results/Procedures Labs Laboratory Tests 06/23/23 16:33 06/23/23 22:30 06/24/23 03:20 06/24/23 04:40 06/24/23 10:26 06/24/23 14:13 Patient resulted labs reviewed. Assessment/Plan Admission Diagnosis DKA Admission Status: Observation Assessment and Plan Assessment 1. DKA secondary to medical noncompliance 2. COVID-19 3. HTN 4. Mild Dehydration 5. History of Type 1 Diabetes Plan 1. Insulin increase from 20 units to 24 units 2. IV fluids 3. Monitor K+ and PO4-; Replenish as needed ISIDRO FAIR DO 06/24/23 2018: History of Present Illness HPI/Chief Complaint Chief complaint: DKA with nausea and vomiting HPI: This is a 23-year-old male clinic patient of [facility] who presented to the ER with nausea and vomiting and high sugars found to be in DKA. Last DKA episode was September 2022 Source: patient Exam Limitations: no limitations Past Nutyyzk-Cqjkju-Swavyo Hx Patient Social History Marrital Status: single Employed/Student: unemployed Smoking Status: Never a Smoker Review of Systems Constitutional: see HPI, weakness Gastrointestinal: nausea, vomiting Physical Exam Physical Exam General Appearance: No Apparent Distress, Chronically ill Respiratory: Lungs Clear, Normal Breath Sounds Cardiovascular: Regular Rate, Rhythm Assessment/Plan Admission Diagnosis DKA Insulin drip Admission Status: Inpatient Order (span 2 midnights) Reason for Inpatient Admission: DKA Supervisory-Addendum Brief Verification & Attestation Participated in pt care: history, MDM, physical Personally performed: exam, history, MDM, supervision of care Care discussed with: Medical Student Procedures: n/a Results interpretation: Verified all documentation Verification and Attestation of Medical Student E/M Service A medical student performed and documented this service in my presence. I reviewed and verified all information documented by the medical student and made modifications to such information, when appropriate. I personally performed the physical exam and medical decision making. Isidro Fair, Jun 24, 2023,20:16 WESLEY ANDERSON Jun 24, 2023 13:19 ISIDRO FAIR DO Jun 24, 2023 20:18
[2023-06-24] MEDS: POTASSIUM CHLORIDE INJ 40 MEQ in D5 NS 1,000 ML IV SOLN 1,000 ML IV SCH ×4 (13:50→21:18)
[2023-06-24 14:41] LABS: CALCIUM 8.5 MG/DL (8.5-10.1); CREATININE SERUM 0.98 MG/DL (0.60-1.30); POTASSIUM 3.4 MMOL/L (3.6-5.0)
[2023-06-24 18:40] LABS: CALCIUM 8.2 MG/DL (8.5-10.1); CREATININE SERUM 0.92 MG/DL (0.60-1.30); POTASSIUM 3.5 MMOL/L (3.6-5.0)
[2023-06-24] MEDS: ENOXAPARIN 40 MG/0.4 ML SYRINGE SC SCH (21:53)
[2023-06-24 22:52] LABS: POTASSIUM 3.6 MMOL/L (3.6-5.0)
[2023-06-24] MEDS ORDERED: D5 LR 1,000 ML IV SOLN 1,000 ML IV ONE (22:52)
[2023-06-24 22:53] LABS: CALCIUM 8.3 MG/DL (8.5-10.1)
[2023-06-24 22:58] LABS: CREATININE SERUM 0.83 MG/DL (0.60-1.30)
[2023-06-25] MEDS: POTASSIUM CL 10MEQ/50ML IVPB 50 ML IV SCH ×5 (00:19→07:53)
[2023-06-25] MEDS: POTASSIUM CHLORIDE INJ 40 MEQ in D5 NS 1,000 ML IV SOLN 1,000 ML IV SCH ×2 (00:51→06:01)
[2023-06-25] MEDS: D5 LR 1,000 ML IV SOLN 1,000 ML IV SCH (03:55)
[2023-06-25] MEDS: LACTATED RINGERS 1,000 ML 1,000 ML IV SCH (05:07)
[2023-06-25 05:16] LABS: BASOPHILS # (AUTO) 0.1 10^3/uL (0.0-0.1); BASOPHILS % (AUTO) 1 % (0-10); EOSINOPHILS # (AUTO) 0.1 10^3/uL (0.0-0.3); EOSINOPHILS % (AUTO) 2 % (0-10); HEMATOCRIT 36 % (40-54); HEMOGLOBIN 13.1 g/dL (13.3-17.7); LYMPHOCYTES # (AUTO) 2.1 10^3/uL (1.0-4.0); LYMPHOCYTES % (AUTO) 33 % (12-44); MEAN CORPUSCULAR HEMOGLOBIN 30 pg (25-34); MEAN CORPUSCULAR HGB CONC 37 g/dL (32-36); MEAN CORPUSCULAR VOLUME 82 fL (80-99); MEAN PLATELET VOLUME 8.9 fL (9.0-12.2); MONOCYTES # (AUTO) 0.6 10^3/uL (0.0-1.0); MONOCYTES % (AUTO) 10 % (0-12); NEUTROPHILS # (AUTO) 3.5 10^3/uL (1.8-7.8); NEUTROPHILS % (AUTO) 54 % (42-75); PLATELET COUNT 258 10^3/uL (130-400); WHITE BLOOD COUNT 6.4 10^3/uL (4.3-11.0)
[2023-06-25 05:23] LABS: POTASSIUM 3.1 MMOL/L (3.6-5.0)
[2023-06-25 05:24] LABS: CALCIUM 7.8 MG/DL (8.5-10.1)
[2023-06-25 05:28] LABS: CREATININE SERUM 0.72 MG/DL (0.60-1.30)
[2023-06-25 05:43] LABS: ALBUMIN 3.2 GM/DL (3.2-4.5); BILIRUBIN,TOTAL 0.7 MG/DL (0.1-1.0); CALCIUM 7.9 MG/DL (8.5-10.1); CREATININE SERUM 0.72 MG/DL (0.60-1.30); MAGNESIUM 1.7 MG/DL (1.6-2.4); POTASSIUM 3.2 MMOL/L (3.6-5.0); TOTAL PROTEIN 5.3 GM/DL (6.4-8.2)
[2023-06-25] MEDS: MAGNESIUM 1 GM/100 ML IVPB 100 ML IV SCH ×3 (06:04→07:55)
[2023-06-25] MEDS: POTASSIUM CHLORIDE 20 MEQ TABLET PO SCH (06:04)
[2023-06-25 06:05] LABS: PHOSPHORUS 0.9 MG/DL (2.3-4.7)
[2023-06-25] MEDS ORDERED: POTASSIUM PHOSPHATE INJ 30 MM in NS (IVPB) 250 ML 250 ML IV ONE (06:15)
[2023-06-25 06:38] LABS: ABG BASE EXCESS -5.1 MMOL/L (-2.5-2.5); ABG OXYGEN SATURATION 97 % (94-100); ABG PCO2 34 MMHG (35-45); ABG PH 7.37 (7.37-7.43); ABG PO2 97 MMHG (79-93); ABG TCO2 20.3 MMOL/L (21.0-31.0)
[2023-06-25 06:39] LABS: ALLENS TEST YES-POS; INSPIRED O2 RA; PATIENT TEMP 37; VENTILATOR NO
[2023-06-25] MEDS: DOCUSATE SODIUM 100 MG CAPSULE PO SCH (08:09)
[2023-06-25] MEDS ORDERED: inSUlin DETERMIR 1 UNIT/0.01 ML (CHARGE PER UNIT) SQ ONE (09:00)
--- NOTE | 2023-06-25 09:54 | Tele-ICU Progress Note ---
Subjective Date Seen by a Provider: Jun 25, 2023 Subjective/Events-last exam (Tele-ICU Physician , Progress Note ) Service provided via interactive audio and video telecommunications E-CARE system to a patient admitted to ICU bed in [facility]. Patient is seen today due to persistent need of ICU care Available chart/ vitals / labs / Images reviewed Video assessment done using teleICU camera, rest of exam as per RN Discussed with RN Events overnight : Afebrile hemodynamically stable Respiratory - I/O = Drips: Pressors- no Hospital course: A/P DKA -precipitated by medical noncompliance , DM type I *Insulin drip to stop , long acting to start Covid 19 - monitor , cxr clear Leukocytosis - reactive >off ABX VTE Prophylaxis: david Stress Ulcer Prophylaxis: Plans in collaboration with bedside consultants and IM MDs. Discussed with RN to reach out if any questions or concerns Case and care daily discussed on multidisciplinary rounds ( RN, PharmD, Coat Tailor , Respiratory Therapy, aircraft layout worker ) A total of 10 minutes of critical care time was devoted to this patient today, required to treat and/or prevent further deterioration of critical care condition ( as above ) . I am remotely monitoring this patient from another state. I am unable to do the bedside exam, and history/physical and pertinent information is taken from other notes in the computer and bedside staff. Sepsis Event Evaluation Height, Weight, BMI Height: '" Weight: lbs. oz. kg; 28.66 BMI Method: Exam Exam Patient acknowledged, consented, and participated in this virtual visit which was conducted using real time audio/video Vital Signs Date Time Temp Pulse Resp B/P (MAP) Pulse Ox O2 Delivery O2 Flow Rate FiO2 06/25/23 09:00 107 149/94 (112) 97 Room Air 06/25/23 08:16 36.5 06/25/23 08:00 105 144/95 (111) 98 Room Air 06/25/23 07:00 90 06/25/23 07:00 90 153/94 (113) 97 Room Air 06/25/23 06:00 102 96 Room Air 06/25/23 05:00 95 97 Room Air 06/25/23 04:00 100 Room Air 06/25/23 04:00 90 122/81 (95) 96 Room Air 06/25/23 03:00 98 128/81 (97) 94 Room Air 06/25/23 02:00 96 112/64 (80) 95 Room Air 06/25/23 01:00 100 06/25/23 01:00 101 121/81 (94) 97 Room Air 06/25/23 00:00 99 Room Air 06/25/23 00:00 101 117/83 (94) 99 Room Air 06/24/23 23:00 103 126/89 (101) 98 Room Air 06/24/23 22:00 103 129/89 (102) 99 Room Air 06/24/23 21:00 111 106/71 (83) 99 Room Air 06/24/23 20:00 100 Room Air 06/24/23 20:00 121 123/68 (86) 99 Room Air 06/24/23 19:19 98 06/24/23 19:00 109 133/97 (109) 99 Room Air 06/24/23 19:00 109 06/24/23 18:00 105 146/92 (110) 99 Room Air 06/24/23 17:00 104 124/83 (97) 100 Room Air 06/24/23 16:00 105 117/82 (94) 100 Room Air 06/24/23 16:00 36.3 06/24/23 16:00 100 Room Air 06/24/23 15:00 96 124/90 (101) 98 Room Air 06/24/23 14:00 104 99 Room Air 06/24/23 13:35 99 06/24/23 13:00 99 145/91 (109) 100 Room Air 06/24/23 12:00 96 135/87 (103) 99 Room Air 06/24/23 12:00 36.4 06/24/23 12:00 100 Room Air 06/24/23 11:00 98 134/87 (103) 98 Room Air 06/24/23 10:00 111 123/82 (96) 99 Room Air I & O 06/25/23 07:00 Intake Total 5900 ml Output Total 6150 ml Balance -250 ml Height & Weight Height: '" Weight: lbs. oz. kg; 28.66 BMI Method: General Appearance: No Apparent Distress, Chronically ill HEENT: Moist Mucous Membranes; No Photophobia, No Scleral Icterus (L), No Scleral Icterus (R), No Tonsillar Exudate, No Tonsillar Enlargement Neck: Non Tender, Supple Respiratory: Lungs Clear, Normal Breath Sounds Cardiovascular: Regular Rate, Rhythm Capillary Refill: Greater Than 3 Seconds Extremity: Normal Capillary Refill, Normal Inspection, No Pedal Edema Neurologic/Psychiatric: Alert, Oriented x3, hospice care consultant II-XII Norm as Tested Skin: Normal Color, Warm/Dry Results Lab Laboratory Tests 06/23/23 16:33 06/23/23 22:30 06/24/23 03:20 06/24/23 04:40 06/24/23 10:26 06/24/23 14:13 06/24/23 18:15 06/24/23 22:35 06/25/23 05:00 Assessment/Plan Assessment/Plan 1 AXEL SWAIN MD Jun 25, 2023 09:54
[2023-06-25 10:04] LABS: CALCIUM 8.1 MG/DL (8.5-10.1); CREATININE SERUM 0.61 MG/DL (0.60-1.30); POTASSIUM 3.3 MMOL/L (3.6-5.0)
[2023-06-25] MEDS ORDERED: POTASSIUM CHLORIDE 20 MEQ TABLET PO ONE (10:30)
[2023-06-25] MEDS ORDERED: inSUlin ASPART 1 UNIT/0.01 ML (PER UNIT) SC SCH (12:00)
[2023-06-25] MEDS ORDERED: INSU100I14 SQ (12:24)
--- NOTE | 2023-06-25 12:24 | Discharge Summary ---
Discharge Summary Hospital Course Was the Problem List Reviewed?: Yes Problems/Dx: (1) DKA (diabetic ketoacidosis) Status: Acute Qualifiers: Qualified Codes: E10.10 - Type 1 diabetes mellitus with ketoacidosis without coma (2) COVID-19 Status: Acute Hospital Course Date of Admission: Jun 23, 2023 at 19:05 Admission Diagnosis : Family Physician/Provider: Mini Hermrann Aprn Date of Discharge: 06/25/23 Discharge Diagnosis: [ ] Hospital Course: Uneventful hospital course after he was admitted for DKA with COVID-19. Patient was placed on insulin drip and gap closed and ketoacidosis resolved and patient was transitioned to subcu insulin and discharged home. Labs and Pending Lab Test: Laboratory Tests 06/24/23 12:40: Glucometer 173H 06/24/23 13:45: Glucometer 205H 06/24/23 14:13: Sodium Level 135, Potassium Level 3.4L, Chloride Level 111H, Carbon Dioxide Level 14L, Anion Gap 10, Blood Urea Nitrogen 5L, Creatinine 0.98, Estimat Glomerular Filtration Rate 113, BUN/Creatinine Ratio 5, Glucose Level 190H, Calcium Level 8.5 06/24/23 14:36: Glucometer 169H 06/24/23 15:50: Glucometer 154H 06/24/23 17:00: Glucometer 141H 06/24/23 17:36: Glucometer 105 06/24/23 18:15: Sodium Level 136, Potassium Level 3.5L, Chloride Level 113H, Carbon Dioxide Level 15L, Anion Gap 8, Blood Urea Nitrogen 6L, Creatinine 0.92, Estimat Glomerular Filtration Rate 121, BUN/Creatinine Ratio 7, Glucose Level 159H, Calcium Level 8.2L, Beta-Hydroxybutyrate (Chem panel) 1.21H 06/24/23 18:19: Glucometer 164H 06/24/23 19:50: Glucometer 71 06/24/23 21:00: Glucometer 65L 06/24/23 21:52: Glucometer 78 06/24/23 22:35: Sodium Level 135, Potassium Level 3.6, Chloride Level 112H, Carbon Dioxide Level 14L, Anion Gap 9, Blood Urea Nitrogen 9, Creatinine 0.83, Estimat Glomerular Filtration Rate 128, BUN/Creatinine Ratio 11, Glucose Level 121H, Calcium Level 8.3L 06/24/23 22:50: Glucometer 134H 06/24/23 23:48: Glucometer 149H 06/25/23 00:53: Glucometer 121H 06/25/23 01:49: Glucometer 172H 06/25/23 02:41: Glucometer 173H 06/25/23 03:50: Glucometer 188H 06/25/23 04:55: Glucometer 211H 06/25/23 05:00: White Blood Count 6.4, Red Blood Count 4.33, Hemoglobin 13.1L, Hematocrit 36L, Mean Corpuscular Volume 82, Mean Corpuscular Hemoglobin 30, Mean Corpuscular Hemoglobin Concent 37H, Red Cell Distribution Width 12.8, Platelet Count 258, Mean Platelet Volume 8.9L, Immature Granulocyte % (Auto) 1, Neutrophils (%) (Auto) 54, Lymphocytes (%) (Auto) 33, Monocytes (%) (Auto) 10, Eosinophils (%) (Auto) 2, Basophils (%) (Auto) 1, Neutrophils # (Auto) 3.5, Lymphocytes # (Auto) 2.1, Monocytes # (Auto) 0.6, Eosinophils # (Auto) 0.1, Basophils # (Auto) 0.1, Immature Granulocyte # (Auto) 0.0, Sodium Level 138, Potassium Level 3.2L, Chloride Level 113H, Carbon Dioxide Level 17L, Anion Gap 8, Blood Urea Nitrogen 5L, Creatinine 0.72, Estimat Glomerular Filtration Rate 133, BUN/Creatinine Ratio 7, Glucose Level 197H, Calcium Level 7.9L, Corrected Calcium 8.5, Phosphorus Level 0.9*L, Magnesium Level 1.7, Total Bilirubin 0.7, Aspartate Amino Transf (AST/SGOT) 11, Alanine Aminotransferase (ALT/SGPT) 10, Alkaline Phosphatase 56, Total Protein 5.3L, Albumin 3.2 06/25/23 06:00: Glucometer 193H 06/25/23 06:30: Blood Gas Puncture Site RRAD, Blood Gas Patient Temperature 37, Arterial Blood pH 7.37, Arterial Blood Partial Pressure CO2 34L, Arterial Blood Partial Pressure O2 97H, Arterial Blood HCO3 19L, Arterial Blood Total CO2 20.3L, Arterial Blood Oxygen Saturation 97, Arterial Blood Base Excess -5.1L, Telly Test YES-POS, Blood Gas Ventilator Setting NO, Blood Gas Inspired Oxygen RA 06/25/23 09:47: Sodium Level 137, Potassium Level 3.3L, Chloride Level 110H, Carbon Dioxide Level 21, Anion Gap 6, Blood Urea Nitrogen 4L, Creatinine 0.61, Estimat Glomerular Filtration Rate 140, BUN/Creatinine Ratio 7, Glucose Level 173H, Calcium Level 8.1L Microbiology 06/23/23 MRSA Screen - Final, Complete MRSA not isolated Home Meds Active Novolog Flexpen (Insulin Aspart) 100 Unit/Ml (3 Ml) Solution 15 Units SQ AC Assessment/Pt Instructions PCP in 1 week Discharge Planning: <30 minutes discharge planning Discharge Instructions Discharge Diet: ADA Diet Discharge Physical Examination Vital Signs Vital Signs Date Time Temp Pulse Resp B/P (MAP) Pulse Ox O2 Delivery O2 Flow Rate FiO2 06/25/23 11:41 36.4 06/25/23 11:00 103 98 Room Air 06/23/23 20:10 21 06/23/23 19:15 30 General Appearance: No Apparent Distress, WD/WN Allergies: Coded Allergies: No Known Drug Allergies (Unverified , 10/06/22) Discharge Summary Date of Admission Jun 23, 2023 at 19:05 Date of Discharge Discharge Date: Jun 25, 2023 Admission Diagnosis DKA Insulin ISIDRO Retana DO Jun 25, 2023 12:24
[2023-06-25 13:15] LABS: POTASSIUM 4.2 MMOL/L (3.6-5.0)
[2023-06-25 13:16] LABS: CALCIUM 8.4 MG/DL (8.5-10.1)
[2023-06-25 13:21] LABS: CREATININE SERUM 0.6 MG/DL (0.60-1.30)
== END 2023-06-25 14:00 | disposition home or self-care (01) | DRG 637 ==
LOC: ER FS 16:30 → EDUNIT# 16:30 → ICU 19:05
PROVIDERS: ADMIT Internal Medicine; ATTEND Internal Medicine
PROC: 8E0ZXY6 Isolation (ICD-10-PCS; principal; 2023-06-23)
DX: E10.10 Type 1 diabetes mellitus with ketoacidosis without coma (principal); U07.1 COVID-19; D72.829 Elevated white blood cell count, unspecified; Z91.199 Patient's noncompliance with other medical treatment and regimen due to unspecified reason; I10 Essential (primary) hypertension; E86.0 Dehydration
CPT/HCPCS: 36415; 36600; 71045; 80048; 80053; 82010; 82805; 82947; 83690; 83735; 83880; 84100; 84484; 85007; 85025; 85027; 85610; 85730; 87081; 87636; 93005; G0378